=== PATIENT | male | born 1955 | race Caucasian/White ===

== ENCOUNTER 2016-09-13 09:26 | Inpatient (IN) | payer BC ==
[~2016-09-13] VITALS: Ht 172.7 cm; Wt 95.6 kg
[2016-09-13 10:16] LABS: BASO # 0.1 K/mm3 (0.0-0.2); BASO % 0.9 % (0.0-1.0); EOS # 0.1 K/mm3 (0.0-0.50); EOS % 1.2 % (0.0-3.0); LARGE UNSTAINED CELL # 0.1 K/mm3 (0.0-0.4); LARGE UNSTAINED CELL % 1.3 % (0.0-4.0); LYMPH # 1.7 K/mm3 (1.5-4.5); LYMPH % 15.6 % (24.0-44.0); MEAN CORPUSCULAR HEMOGLOBIN 33.1 pg (27.0-33.0); MEAN CORPUSCULAR VOLUME 100.2 fl (80.0-96.0); MONO # 0.5 K/mm3 (0.0-0.8); NEUTROPHILS # 7.7 K/mm3 (1.8-7.7); PLATELET COUNT, AUTOMATED 208 k/mm3 (150-450); RED CELL DISTRIBUTION WIDTH 14.2 % (11.5-14.5); WHITE BLOOD COUNT 10.1 K/mm3 (4.0-10.0)
[2016-09-13 10:22] LABS: INR 0.86
--- NOTE | 2016-09-13 10:26 | REP ---
Brain CT without contrast: History: Left arm weakness. CVA greater than 4.5 hours. No comparison study. Findings: Digital lateral reshipping clerk radiograph is unremarkable. Bone window settings demonstrate an intact bony calvarium. Fairly prominent vascular calcification is noted bilaterally in the distal carotid and vertebral arteries. The visualized paranasal sinuses are clear. No intraorbital abnormality is seen. There is mild diffuse cerebral atrophy. There is no evidence of intracranial hemorrhage. No mass, infarct, extra-axial fluid collection or midline shift is seen. Impression: Vascular calcification and diffuse atrophy. No acute intracranial lesion. Signed by Goyo Erazo MD 09/13/2016 12:38 P
--- NOTE | 2016-09-13 10:27 | REP ---
AP semi-erect chest x-ray: Single view. History: Weakness. Findings: EKG monitoring electrodes overlie the chest. The lungs are well inflated and clear. The pleural angles are sharp. Heart is not enlarged. Impression: No active disease. Signed by Goyo Erazo MD 09/13/2016 12:38 P
[2016-09-13 10:38] LABS: ANION GAP 10 MEQ/L (8-16); BLOOD UREA NITROGEN 23 MG/DL (7-18); CALCIUM LEVEL 8.5 MG/DL (8.5-10.1); CARBON DIOXIDE LEVEL 26 MEQ/L (21-32); CHLORIDE LEVEL 107 MEQ/L (98-107); CREATININE FOR GFR 1.14 MG/DL (0.70-1.30); GLOMERULAR FILTRATION RATE > 60.0 (>56); GLUCOSE, FASTING 88 MG/DL (70-105); POTASSIUM SERUM 4.2 MEQ/L (3.5-5.1); SODIUM LEVEL 143 MEQ/L (136-145)
[2016-09-13 10:44] LABS: ALBUMIN 3.9 GM/DL (3.2-5.2); ALBUMIN/GLOBULIN RATIO 1.22 (1.00-1.93); ALKALINE PHOSPHATASE 106 U/L (45-117); ALT/SGPT 69 U/L (12-78); AST/SGOT 136 U/L (15-37); BILIRUBIN,DIRECT < 0.1 MG/DL (0.0-0.2); BILIRUBIN,TOTAL 0.3 MG/DL (0.2-1.0); TOTAL PROTEIN 7.1 GM/DL (6.4-8.2)
[2016-09-13 11:07] LABS: AMPHETAMINES LEVEL URINE NEGATIVE (NEGATIVE); BENZODIAZEPINES URINE NEGATIVE (NEGATIVE); COCAINE METABOLITE URINE NEGATIVE (NEGATIVE); CONTROL LINE INT CTR LINE PRESENT; METHADONE URINE NEGATIVE (NEGATIVE); OPIATES URINE POSITIVE (NEGATIVE); TRICYCLIC ANTIDEPRESS URINE POSITIVE (NEGATIVE)
[2016-09-13] MEDS ORDERED: SIMV20TA2 PO (11:41)
[2016-09-13] MEDS ORDERED: LISI-538 PO (11:41)
[2016-09-13] MEDS ORDERED: PRED20TA PO (11:41)
[2016-09-13] MEDS ORDERED: SERT-138 PO (11:41)
[2016-09-13] MEDS ORDERED: CYCL10TA PO (11:41)
[2016-09-13] MEDS ORDERED: BUPR300T34 PO (11:41)
[2016-09-13] MEDS ORDERED: ACETAMINOPHEN TAB 650MG DOSE (2X325MG) PO PRN (12:15)
[2016-09-13 13:13] LABS: CHOLESTEROL LEVEL 201 MG/DL (<200); TRIGLYCERIDES LEVEL 142 MG/DL (<150)
--- NOTE | 2016-09-13 15:00 | REP ---
Left shoulder: Single view. History: Injury and a fall question fracture. Findings: The glenohumeral and acromioclavicular joints are normally aligned. There is irregular ossification at the coracoclavicular ligament consistent with a previous AC separation injury. No acute fracture is seen. There is mild osteoarthritic spurring at the AC joint. Impression: No acute fracture seen on this single AP view. Ossification along the course of the coracoclavicular ligament consistent with old injury. Signed by Goyo Erazo MD 09/13/2016 03:39 P
[2016-09-13] MEDS ORDERED: PERCOCET 5MG/325MG TAB As Ordered ONE ×2 (15:24→15:32)
--- NOTE | 2016-09-13 15:25 | REP ---
Duplex carotid sonography: History: Evaluate for stenosis. CVA. Findings: Antegrade flow is observed in both vertebral arteries. Right carotid: The right common carotid artery shows mild diffuse intimal thickening. There is mild mixed plaquing in the proximal ICA on two-dimensional scanning. Color flow and spectral Doppler interrogation are unremarkable on the right. Velocity chart right carotid: PSV EDV Right CCA 90.0 cm/s Right ICA 104.0 39.0 Right ECA 153.0 Right ICA/CCA ratio normal 1.2. Impression: 16 - 49% category narrowing in the right ICA by Doppler velocity criteria. Left carotid: There is mild mixed plaquing in the distal CCA on the left side. Mixed plaquing is seen in the bulb and proximal ICA on two-dimensional scanning. Doppler interrogation on the left shows mildly elevated systolic velocities in the left ICA. Left carotid velocity chart: PSV EDV Left CCA 133.0 cm/s Left ICA 153.0 53.0 Left ECA 129.0 Left ICA/CCA ratio 1.2. Impression: 50-79% category narrowing in the left ICA by Doppler velocity criteria. Signed by Goyo Erazo MD 09/13/2016 03:39 P
--- NOTE | 2016-09-13 17:00 | HPEPDOC ---
General Date of Admission 09/13/16 - 1130AM Chief Complaint The patient is a 61-year-old male Presented to the ER with complaints of left arm weakness and feeling stupid History of Present Illness Patient is a 61 year old male with a PMHx of HTN, DLP, Chronic alcohol dependence, Depression and Sciatica who presented to the ER, brought in by his friend because of left arm weakness. Patient noted that yesterday (09/12) afternoon, he was getting out of his pickup truck and fell on his left shoulder. He noted that he fell on his left side. He denied any loss of consciousness or head trauma. He didnt have any significant problems at that time. He went back to his hotel after that. He did report that he was experiencing some weakness since that point. When he was at the hotel he had a pint of bourbon. His friend found him the next morning with arm weakness and brought him to the ER. Patient denies any previous stroke or heart attack. He denies any chest pain, palpitations, shortness of breath, nausea / vomiting, abdominal pain, constipation / diarrhea, or urinary symptoms. He denies any incontinence of urine or stool. Home Medications Scheduled Bupropion HCl (Bupropion HCl Xl) 300 Mg Tab 300 MG PO DAILY (Reported) Cyclobenzaprine HCl (Cyclobenzaprine HCl) 10 Mg Tab 10 MG PO QHS (Reported) Lisinopril (Lisinopril) 20 Mg Tab 20 MG PO QHS (Reported) Prednisone (Prednisone) 20 Mg Tab 20 MG PO BID (Reported) FOR 5 DAYS FILLED / Sertraline HCl (Sertraline HCl) 100 Mg Tab 200 MG PO QHS (Reported) Simvastatin (Simvastatin) 20 Mg Tab 20 MG PO QHS (Reported) Allergies Coded Allergies: No Known Drug Allergy (Unverified Allergy, Unknown, 09/13/16) Past Medical History Medical History HTN, DLP, Chronic alcohol dependence, Depression and Sciatica Surgical History s/p Cholecystectomy 2016 b/l knee surgery repair Right inguinal hernia repair 1973 Family History Family History Non contributory Social History Social History - Denies the use of illicit drugs; Smoker of 40 years at 2 ppd; Alcohol user - drinks up to 1 pint of hard liquor daily - Denies recent travel or sick contacts - Lives with in [place] is here in [place] for work - Occupation; Works for [employer] Review of Symptoms Other systems Constitutional: Denies weight loss, change in appetite, Reports recent trauma from fall Eyes: No visual changes or eye pain Ears, Nose, Throat: Denies nose bleeds, or difficulty swallowing Cardiovascular: Denies chest pain, sweating, or orthopnea Respiratory: Denies cough, wheezing, or shortness of breath GI: Kp nausea, vomiting, abdominal pain, diarrhea or constipation : Denies pain with urination or frequency Musculoskeletal: Denies joint pain or swelling Neuro / Psych: reports left arm weakness and left leg weakness, no sensory deficit noted Skin: No skin rashes noted All other review of systems negative; otherwise stated in history of present illness Vital Signs - Vitals: BP 147/83, HR 74, RR 16, Sat 95%RA, Temp 96.9F - General: Lying in bed, No acute distress, Speaking in full sentences, AAOx3 - HEENT: NC, AT, PERRLA, EOMI - CVS: RRR, +S1S2, - Murmurs / rubs / gallops - Lungs: Fair air entry bilaterally, Clear to auscultation, No wheezing / rales / rhonchi - Abdomen: Soft, Non-distended, Non-tender, + Bowel sounds x 4 - Extremities: + PPx4, No lower extremity edema, No calf tenderness - Neuro: 3/5 muscle strength at left upper / lower extremity and 5/5 on right upper / lower extremity, no sensory deficit, CN 2-12 grossly intact - Skin: No visible rashes Laboratory Data Labs 24H Laboratory Tests 2 09/13/16 10:08: Acetaminophen Level < 2.0L, Activated Partial Thromboplast Time 26.1L, Aspartate Amino Transf (AST/SGOT) 136H, Alanine Aminotransferase (ALT/SGPT) 69, Alkaline Phosphatase 106, Total Bilirubin 0.3, Direct Bilirubin < 0.1, Albumin 3.9, Albumin/Globulin Ratio 1.22, Anion Gap 10, White Blood Count 10.1H, Red Blood Count 4.67, Hemoglobin 15.4, Hematocrit 46.7, Mean Corpuscular Volume 100.2H, Mean Corpuscular Hemoglobin 33.1H, Mean Corpuscular Hemoglobin Concent 33.0, Red Cell Distribution Width 14.2, Platelet Count 208, Neutrophils (%) ( Auto) 76.0H, Lymphocytes (%) (Auto) 15.6L, Monocytes (%) (Auto) 5.0, Eosinophils (%) (Auto) 1.2, Basophils (%) (Auto) 0.9, Neutrophils # (Auto) 7.7, Lymphocytes # (Auto) 1.7, Monocytes # (Auto) 0.5, Eosinophils # (Auto) 0.1, Basophils # (Auto) 0.1, Blood Urea Nitrogen 23H, Creatinine 1.14, Sodium Level 143, Potassium Level 4.2, Chloride Level 107, Carbon Dioxide Level 26, Calcium Level 8.5, Total Creatine Kinase 219, Cholesterol Level 201H, Cholesterol/HDL Ratio 2.093, Creatine Kinase MB 1.7, Creatine Kinase MB Relative Index 0.77, Estimated Mean Plasma Glucose 100, Ethyl Alcohol Level 0.286H, Glomerular Filtration Rate > 60.0, HDL Cholesterol 96, Hemoglobin A1c 5.1, LDL Cholesterol 76.6, Large Unclassified Cells # 0.1, Large Unclassified Cells % 1.3, Non-HDL Cholesterol (LDL + VLDL) 105, Prothromb Time International Ratio 0.86, Prothrombin Time 11.8L, Salicylates Level 4.8L, Thyroid Stimulating Hormone (TSH ) 3.990H, Total Protein 7.1, Triglycerides Level 142, Troponin I < 0.02 09/13/16 10:49: Urine Amphetamine Level NEGATIVE, Urine Benzodiazepines Screen NEGATIVE, Urine Cannabinoids NEGATIVE, Urine Cocaine Metabolite NEGATIVE, Urine Opiates Screen POSITIVEH, Urine Barbiturates, Qualitative NEGATIVE, Urine Methadone Screen NEGATIVE, Urine Tricyclic Antidepressants POSITIVEH CBC/BMP Laboratory Tests 09/13/16 10:08 Calcium Level 8.5, Total Creatine Kinase 219, Red Blood Count 4.67, Mean Corpuscular Volume 100.2 H, Mean Corpuscular Hemoglobin 33.1 H, Mean Corpuscular Hemoglobin Concent 33.0, Red Cell Distribution Width 14.2, Neutrophils (%) (Auto) 76.0 H, Lymphocytes (%) (Auto) 15.6 L, Monocytes (%) ( Auto) 5.0, Eosinophils (%) (Auto) 1.2, Basophils (%) (Auto) 0.9, Neutrophils # ( Auto) 7.7, Lymphocytes # (Auto) 1.7, Monocytes # (Auto) 0.5, Eosinophils # (Auto ) 0.1, Basophils # (Auto) 0.1 Plan / VTE VTE Prophylaxis Ordered?: Yes Plan Plan Left arm and leg weakness possibly 2/2 acute cerebrovascular accident, possibly radiculopathy 2/2 fall - Presented with 1 day history of left arm and left leg weakness after a fall - Physical with noted focal motor weakness, CN 2-12 grossly intact - CT negative for hemorrhagic stroke - Will get MRI / MRA of brain, will get MRA of cervical spine - Will get 2D-ECHO, Carotid US, Lipid profile - Will start aspirin and continue with home medications - Will continue with neuro checks - Case discussed with Neurology; at this point we will consult them when the results of the imaging become available Chronic alcohol dependence - long standing history of alcohol dependence - was found to have an elevated alcohol level in the ER - will keep on alcohol withdrawal precautions - will start Librium protocol - will start Folate, Thiamine and multivitamins Shoulder pain 2/2 mechanical fall - will get XR to evaluate for fracture - will start pain control HTN - BP well controlled at this time - will continue with lisinopril with holding parameters DLP - will continue with simvastatin Depression - will continue with sertraline Sciatica - reports that he has been having back pain early this week - was seen at urgent care center and received a steroid injection for the pain - was also provided with a prescription for prednisone and Flexeril - if MRI brain is negative - will get MRI of lumbar / sacral vertebra - will continue with pain control Gastrointestinal prophylaxis - Will start protonix DVT prophylaxis - Will start heparin THU RESTREPO MD Sep 13, 2016 17:00
[2016-09-13] MEDS ORDERED: NICOTINE 21MG/24HR 1 EA TRANSDERMAL As Ordered ONE (18:07)
--- NOTE | 2016-09-13 18:30 | EDDOCDS ---
Physician Documentation [facility] Name: Renny Toure Age: 61 yrs Sex: Male : 1955 Arrival Date: 09/13/2016 Time: 09:26 Bed D1 Private MD: NO PRIMARY PHYSICIAN, . Disposition: 09/13 11:52 Critical Care:. ml Disposition: 09/13/16 11:20 Hospitalization ordered by Claudia Egan for Inpatient Admission. Preliminary diagnosis are Cerebral infarction - with left sided weakness, Alcohol abuse with intoxication. - Bed requested for PCU. - Status is Inpatient Admission. jo3 - Condition is Stable. - Problem is new. - Symptoms are unchanged. Historical: - Allergies: no known allergies; - Home Meds: 1. simvastatin 40 mg Oral tab 1 tab once daily (Last dose: Unknown) 2. Sertraline Unknown daily (Last dose: Unknown) 3. lisinopril Unknown Oral 1 tab once daily (Last dose: Unknown) 4. buspirone 5 mg oral tab Unknown 2 times per day (Last dose: Unknown) 5. Flexeril 10 mg Oral tab 1 tab 3 times per day (Last dose: 09/13/2016 07:00) - PMHx: Hypertension; Hypercholesterolemia; Depression; Anxiety; DDD; - PSHx: Cholecystectomy; Hernia repair; bilateral knee scope; - Social history: Smoking status: Patient uses tobacco products, heavy tobacco smoker. Patient uses alcohol on a daily basis. No barriers to communication noted, Speaks appropriately for age. - Family history: Not pertinent. - : The pt / caregiver states he / she is not on anticoagulants. Home medication list is obtained from. - Exposure Risk Screening:: None identified. Vital Signs: 09:43 Pulse 98; Resp 16; Temp 96.9(T); Pulse Ox 99% ; Weight 97.52 kg / 214.99 lbs; Height 5 elp ft. 8 in. (172.72 cm); Pain 8/10; 09:45 BP 111 / 74 (auto/); jo3 09:46 BP 111 / 74; dem1 09:46 Pulse 70 MON; Pulse Ox 91% ; jo3 10:15 BP 105 / 74 (auto/); jo3 10:15 Pulse 68 MON; Pulse Ox 91% ; jo3 10:45 BP 147 / 83 (auto/); jo3 10:45 Pulse 84 MON; Pulse Ox 83% ; jo3 10:55 Weight 94.35 kg / 208.01 lbs (M); ct3 11:01 Pulse 74 MON; Pulse Ox 95% ; jo3 11:15 BP 117 / 70 (auto/); jo3 11:15 Pulse 74 MON; jo3 12:07 BP 119 / 73 (auto/); jo3 12:07 Pulse 82 MON; jo3 12:15 BP 120 / 74 (auto/); jo3 12:15 Pulse 76 MON; jo3 12:30 BP 112 / 94 (auto/); jo3 12:30 Pulse 78 MON; jo3 12:45 BP 128 / 77 (auto/); jo3 12:45 Pulse 76 MON; jo3 13:00 BP 125 / 73 (auto/); jo3 13:00 Pulse 76 MON; jo3 13:15 BP 130 / 87 (auto/); jo3 13:15 Pulse 90 MON; jo3 13:30 BP 128 / 70 (auto/); jo3 13:30 Pulse 80 MON; jo3 13:45 BP 112 / 63 (auto/); jo3 13:45 Pulse 82 MON; jo3 14:00 BP 124 / 68 (auto/); jo3 14:00 Pulse 82 MON; jo3 14:15 BP 126 / 76 (auto/); jo3 14:15 Pulse 84 MON; jo3 16:34 BP 135 / 94 (auto/); jo3 16:34 Pulse 90 MON; Resp 18; Temp 98.9(O); Pulse Ox 96% on R/A; jo3 18:25 BP 135 / 83; Pulse 82 MON; Resp 18; Temp 98.1; Pulse Ox 96% on R/A; jo3 10:55 Body Mass Index 31.63 (94.35 kg, 172.72 cm) ct3 MDM: 09:44 RN interventions must not delay CT ordered. ml 09:44 Cna Hha/Pulse Ox/q 15 min VS ordered. ml 09:44 Accucheck ordered. ml 09:44 IV Saline Lock ordered. ml 09:44 Neuro VS q 15 Minutes ordered. ml 09:44 Patient must be on CC stretcher and weighed via bed scale ordered. ml 09:44 Rhythm Strip to chart ordered. ml 09:44 Stroke assessment pack to bedside ordered. ml 09:45 Basic Metabolic Profile Ordered. EDMS 09:45 CBC with Diff Ordered. EDMS 09:45 Partial Thromboplastin Time Ordered. EDMS 09:45 Prothrombin Time Profile\E\INR Ordered. EDMS 09:45 Type & Screen Ordered. EDMS 09:45 CIP Ordered. EDMS 09:45 Troponin Ordered. EDMS 09:45 CT Head Without Contrast Ordered. EDMS 09:45 ECG WITH READING ER PHYS+CARDIAG ordered. EDMS 09:45 Consult PFS/PSA/Gas Pumping Station Supervisor ordered. ml 09:45 Confirm accurate psychiatric medication list and times of last dosage ordered. ml 09:46 Chest, 1 View Ordered. EDMS 09:46 Acetaminophen Level Ordered. EDMS 09:46 Drug Eval Toxicology ED Only Ordered. EDMS 09:46 Ethyl Alcohol (ethanol) Ordered. EDMS 09:46 Liver Profile Ordered. EDMS 09:46 Salicylate Level Ordered. EDMS 09:46 Thyroid Stimulating Hormone Ordered. EDMS 10:21 Financial registration complete. lg 11:07 Basic Metabolic Profile Reviewed. ml 11:07 CBC with Diff Reviewed. ml 11:07 Partial Thromboplastin Time Reviewed. ml 11:07 Prothrombin Time Profile\E\INR Reviewed. ml 11:07 Acetaminophen Level Reviewed. ml 11:07 Ethyl Alcohol (ethanol) Reviewed. ml 11:07 Liver Profile Reviewed. ml 11:07 Salicylate Level Reviewed. ml 11:07 Thyroid Stimulating Hormone Reviewed. ml 11:07 Type & Screen Reviewed. ml 11:07 CIP Reviewed. ml 11:07 Troponin Reviewed. ml 11:07 CT Head Without Contrast Reviewed. ml 11:07 Chest, 1 View Reviewed. ml 11:09 [facility] [place] was scanned into [employer] and attached to record. lg 11:12 Drug Eval Toxicology ED Only Reviewed. ml 11:14 BED REQUEST+ADM ordered. EDMS 12:07 MRA BRAIN W/O CONTRAST Ordered. EDMS 12:07 MRI Brain without Contrast Ordered. EDMS 12:07 Shoulder 1 view Ordered. EDMS 12:12 PHYSICAL THERAPY EVAL & TREAT ordered. EDMS 12:12 Duplex,carotid (complete) Ordered. EDMS 12:12 Admission / Observation Status ordered. EDMS 12:13 ECHOCARD,DOPPLER/COLOR FLOW ordered. EDMS 12:13 2 GRAM SODIUM DIET ordered. EDMS 12:13 HEMOGLOBIN A1C Ordered. EDMS 12:27 MRI Spine,Cervical without con Ordered. EDMS 13:44 T-Sheet-- Draft Copy was scanned into [employer] and attached to record. [facility] 15:36 oxyCODONE-acetaminophen 5 mg-325 mg 2 tabs PO once ordered. jo3 17:29 Librium 50 mg PO once ordered. jo3 17:29 Multivitamins W-Minerals 1 tabs PO once ordered. jo3 17:29 Pantoprazole 40 mg PO once ordered. jo3 17:29 folic acid 1 mg PO once ordered. jo3 17:29 Thiamine 100 mg PO once ordered. jo3 18:06 Nicotine Patch 21 mg/24 hr 1 applic Transdermal once ordered. ml Administered Medications: 15:36 Drug: oxyCODONE-acetaminophen 2 tabs [oxycodone-acetaminophen 5 mg-325 mg tablet (2 jo3 tabs)] Route: PO; 17:25 Drug: Librium 50 mg Route: PO; jo3 17:25 Drug: Multivitamins W-Minerals 1 tabs Route: PO; jo3 17:25 Drug: Pantoprazole 40 mg [pantoprazole 40 mg tablet,delayed release (1 tabs)] Route: PO;jo3 17:25 Drug: folic acid 1 mg [folic acid 1 mg tablet (1 tabs)] Route: PO; jo3 17:25 Drug: Thiamine 100 mg [thiamine HCl (vitamin B1) 100 mg tablet (1 tabs)] Route: PO; jo3 18:10 Drug: Nicotine 1 applic [nicotine 21 mg/24 hr daily transdermal patch (1 patches)] jo3 Route: Transdermal; Site: left upper arm; Critical Care Time: 11:52 Critical care time: Bedside Care: 90 minutes, Consultation: 10 minutes, Family ml Intervention: 10 minutes. Total time: 110 minutes Signatures: Dispatcher [employer] [facility] Ba Yee MD MD ml Ganter, LoriLee, Marlon Mason lg Mariana Johns RN RN jo3 Elliott Mercer RN RN ml6 Molly Bermudez RN RN donato2 Gabby Mendez [facility] The chart was reviewed and I authenticate all verbal orders and agree with the evaluation and treatment provided.Corrections: (The following items were deleted from the chart) 12:58 12:14 CARDIAC RISK PROFILE ordered. EDHI EDMS Attachments: 11:09 [facility] Payment Agreement lg 13:44 T-Sheet-- Draft Copy seh MTDD
--- NOTE | 2016-09-13 18:31 | EDDOCDS ---
Nurse's Notes [facility] Name: Renny Toure Age: 61 yrs Sex: Male : 1955 Arrival Date: 09/13/2016 Time: 09:26 Bed D1 Private MD: NO PRIMARY PHYSICIAN, . Diagnosis: Cerebral infarction-with left sided weakness;Alcohol abuse with intoxication Presentation: 09/13 09:42 Presenting complaint: Patient states: states left arm weakness since lastnight, patient ml6 states that he has been drinking all night. The last date and time the patient was known to be well was was at 20:00 on September 12, 2015. No acute neurological deficit is noted. Pre-hospital glucose is not applicable to this patient. Adult Sepsis Screening: The patient does not have new or worsening altered mentation. Patient's respiratory rate is less than 22. Systolic blood pressure is greater than 100. Patient has a qSOFA score of 0- Negative Sepsis Screen. Suicide/Homicide risk assessment- the patient denies having any suicidal and/or homicidal ideations and does not present with any other emotional, behavioral or mental health complaints. Status: Patient is not a human service worker or dependent. Transition of care: patient was not received from another setting of care. 09:42 Acuity: VICENTE Level 3 ml6 09:42 Method Of Arrival: Walkin/Carried/Asstd 6 09:42 Red Flag criteria, patient assessed and taken directly to a bed. 6 Triage Assessment: 09:42 The onset of the patients symptoms was more than three hours ago. General: Appears in ml6 no apparent distress, Behavior is drowsy, Smells of alcohol. Pain: Denies pain. HIV screening NA for this visit Offered previously. Neurological: Level of Consciousness is lethargic, Oriented to person, place, Aviation Safety Technician are weak on left Moves all extremities. Weakness in bilateral hand's) arm(s) leg(s) foot/feet Gait is unsteady, Speech is slurred, Facial symmetry appears normal, Reports no additional symptoms. Cardiovascular: No deficits noted. Respiratory: No deficits noted. Historical: - Allergies: no known allergies; - Home Meds: 1. simvastatin 40 mg Oral tab 1 tab once daily (Last dose: Unknown) 2. Sertraline Unknown daily (Last dose: Unknown) 3. lisinopril Unknown Oral 1 tab once daily (Last dose: Unknown) 4. buspirone 5 mg oral tab Unknown 2 times per day (Last dose: Unknown) 5. Flexeril 10 mg Oral tab 1 tab 3 times per day (Last dose: 09/13/2016 07:00) - PMHx: Hypertension; Hypercholesterolemia; Depression; Anxiety; DDD; - PSHx: Cholecystectomy; Hernia repair; bilateral knee scope; - Social history: Smoking status: Patient uses tobacco products, heavy tobacco smoker. Patient uses alcohol on a daily basis. No barriers to communication noted, Speaks appropriately for age. - Family history: Not pertinent. - : The pt / caregiver states he / she is not on anticoagulants. Home medication list is obtained from. - Exposure Risk Screening:: None identified. Screenin:13 Screening information is obtained from the patient. Fall risk: No risks identified. jo3 Assistance ADL's: requires no assistance with activities of daily living. Abuse/DV Screen: The patient / caregiver reports he/she is: not in a situation that causes fear, pain or injury. Nutritional screening: No deficits noted. Advance Directives: There is no active DNR order. home support is adequate. Assessment: 10:13 General: Appears in no apparent distress, comfortable, Behavior is cooperative, Smells jo3 of alcohol. Neurological: Level of Consciousness is awake, alert, Oriented to person, place, time, Aviation Safety Technician are equal bilaterally Moves all extremities. Speech Pt reports feeling "stupid". States he doesn't feel like he's thinking right . Cardiovascular: Rhythm is sinus rhythm No ectopy. Chest pain is denied. Respiratory: Airway is patent Respiratory effort is even, unlabored. Derm: Skin is pink, warm & dry. Musculoskeletal: Reports Left arm pain and right arm weakness and pain. 10:30 Reassessment: Patient appears in no apparent distress at this time. No changes noted in jo3 neuro assessment at this time . 10:45 Reassessment: Patient appears in no apparent distress at this time. No changes in neuro jo3 assessment . 11:00 General: Appears in no apparent distress, comfortable, Behavior is appropriate for age, jo3 cooperative. Neurological: Level of Consciousness is awake, alert, Oriented to person, place, time, Aviation Safety Technician are weak on left Definitive weakness noted in left predatory animal hunter, not perceived in initial assessment by this video game script writer . Moves all extremities. Respiratory: Airway is patent Respiratory effort is even, unlabored. 11:51 General: Appears in no apparent distress, comfortable, Behavior is appropriate for age, jo3 cooperative. Neurological: Level of Consciousness is awake, alert, Oriented to person, place, time, Aviation Safety Technician are weak on left Moves all extremities. Speech Pt continues to report feeling "foggy". EENT: No deficits noted. Cardiovascular: Rhythm is sinus rhythm No ectopy. Chest pain is denied. Respiratory: Airway is patent Respiratory effort is even, unlabored. Derm: Skin is pink, warm & dry. 12:40 Reassessment: Patient appears in no apparent distress at this time. No significant jo3 changes noted at this time. Awaiting available bed for admission. Aware of plan of care . 13:40 Reassessment: Patient appears in no apparent distress at this time. General: Appears in jo3 no apparent distress, comfortable, Behavior is appropriate for age, cooperative, Smells of. Neurological: No deficits noted. Respiratory: Airway is patent Respiratory effort is even, unlabored. 14:45 General: Appears in no apparent distress, uncomfortable, Behavior is appropriate for jo3 age, cooperative, pleasant. Neurological: No deficits noted. Level of Consciousness is awake, alert, Oriented to person, place, time. Respiratory: Airway is patent Respiratory effort is even, unlabored. Derm: Skin is pink, warm & dry. 15:45 General: Appears in no apparent distress, comfortable, Behavior is appropriate for age, jo3 cooperative. Neurological: No changes noted . Cardiovascular: No deficits noted. Derm: Skin is pink, warm & dry. 17:20 Reassessment: Pt reprted shakiness and feeling like he was in ETOH withdrawal. BP and jo3 pulse noted to be increasing by this video game script writer. Pt admits top heavy drinking this week with a positive history of ETOH abuse. Pharmacy called and Librium initiated early to accommodate. Continuing to monitor . Vital Signs: 09:43 Pulse 98; Resp 16; Temp 96.9(T); Pulse Ox 99% ; Weight 97.52 kg; Height 5 ft. 8 in. elp (172.72 cm); Pain /; 09:45 BP 111 / 74 (auto/); jo3 09:46 BP 111 / 74; dem1 09:46 Pulse 70 MON; Pulse Ox 91% ; jo3 10:15 BP 105 / 74 (auto/); jo3 10:15 Pulse 68 MON; Pulse Ox 91% ; jo3 10:45 BP 147 / 83 (auto/); jo3 10:45 Pulse 84 MON; Pulse Ox 83% ; jo3 10:55 Weight 94.35 kg (M); ct3 11:01 Pulse 74 MON; Pulse Ox 95% ; jo3 11:15 BP 117 / 70 (auto/); jo3 11:15 Pulse 74 MON; jo3 12:07 BP 119 / 73 (auto/); jo3 12:07 Pulse 82 MON; jo3 12:15 BP 120 / 74 (auto/); jo3 12:15 Pulse 76 MON; jo3 12:30 BP 112 / 94 (auto/); jo3 12:30 Pulse 78 MON; jo3 12:45 BP 128 / 77 (auto/); jo3 12:45 Pulse 76 MON; jo3 13:00 BP 125 / 73 (auto/); jo3 13:00 Pulse 76 MON; jo3 13:15 BP 130 / 87 (auto/); jo3 13:15 Pulse 90 MON; jo3 13:30 BP 128 / 70 (auto/); jo3 13:30 Pulse 80 MON; jo3 13:45 BP 112 / 63 (auto/); jo3 13:45 Pulse 82 MON; jo3 14:00 BP 124 / 68 (auto/); jo3 14:00 Pulse 82 MON; jo3 14:15 BP 126 / 76 (auto/); jo3 14:15 Pulse 84 MON; jo3 16:34 BP 135 / 94 (auto/); jo3 16:34 Pulse 90 MON; Resp 18; Temp 98.9(O); Pulse Ox 96% on R/A; jo3 18:25 BP 135 / 83; Pulse 82 MON; Resp 18; Temp 98.1; Pulse Ox 96% on R/A; jo3 10:55 Body Mass Index 31.63 (94.35 kg, 172.72 cm) ct3 Vitals: 09:29 Log In Time: September 13, 2016 at 09:27. elp 09:43 RN notified that patient meets Red Flag criteria. elp ED Course: 09:28 Patient visited by Jillian Oakes PCA. elp 09:28 NO PRIMARY PHYSICIAN, . is Private Physician. elp 09:28 Patient moved to Waiting elp 09:31 Nayeli Toney,ERMIAS is Primary Nurse. elp 09:31 Patient moved to 9 elp 09:33 Ba Yee MD is Attending Physician. ml 09:33 Patient visited by Ba Yee MD. ml 09:43 Patient visited by Jillian Oakes PCA. elp 09:44 Triage Initiated ml6 09:[address] dsf 09:46 Pt greeted and oriented to ED. Patient advised of names of staff involved in care, [facility] location of call dejesus, wait times and NPO status. Patient has correct armband on for positive identification. Placed in gown. Bed in low position. Call light in reach. school bus monitor on. Pulse ox on. NIBP on. 09:47 Patient visited by Milagros Parker. dem1 09:56 Patient moved to Radiology je3 10:01 Patient moved to 9 bar 10:03 EKG done. (by ED staff). Reviewed by Ba Yee MD. nb2 10:05 Patient visited by Jesica Duenas. nb2 10:11 Acetaminophen Level Sent. jo3 10:11 Drug Eval Toxicology ED Only Sent. jo3 10:11 Ethyl Alcohol (ethanol) Sent. jo3 10:11 Liver Profile Sent. jo3 10:11 Salicylate Level Sent. jo3 10:11 Thyroid Stimulating Hormone Sent. jo3 10:11 Troponin Sent. jo3 10:11 CIP Sent. jo3 10:11 Basic Metabolic Profile Sent. jo3 10:13 The patient / caregiver is instructed regarding the plan of care and ED course. jo3 10:13 Inserted saline lock: 18 gauge in right antecubital area. Labs drawn. (by ED staff). jo3 Sent per order to lab. 10:40 CT Head Without Contrast Returned. EDMS 10:40 Chest, 1 View Returned. EDMS 10:56 Patient visited by Laura Catherine PCA. ct3 11:06 Patient visited by Mariana Johns RN. jo3 11:08 Patient name changed from Renny\\S\\\\S\\Toure\\S\\ to Renny\\S\\Gary\\S\\Toure. EDMS 11:09 [facility] [place] Agreement was scanned into [employer] and attached to record. lg 11:14 Patient visited by Mariana Johns RN. jo3 11:19 Claudia Egan is Hospitalizing Provider. ml 11:50 Primary Nurse role handed off by Nayeli Toney RN ct3 11:52 Patient visited by Mariana Johns RN. jo3 12:22 Patient visited by Mariana Johns RN. jo3 12:24 Patient moved to Admit Hold kpj 12:38 Patient moved to Ultrasound br3 12:43 Patient moved to Admit Hold kpj 13:05 Patient moved to 9 br3 13:05 CT Head Without Contrast Returned. EDMS 13:05 Chest, 1 View Returned. EDMS 13:30 Patient moved to Admit Hold kpj 13:44 T-Sheet-- Draft Copy was scanned into [employer] and attached to record. seh 14:07 Patient visited by Gabby Schroeder. sew 14:07 Diet: Patient given regular meal. sew 14:48 Patient visited by Sukhjinder Amador,ERMIAS. jf3 15:00 Patient visited by Mariana Johns RN. jo3 15:12 Shoulder 1 view Returned. EDMS 15:46 Duplex,carotid (complete) Returned. EDMS 17:25 Patient visited by Mariana Johns RN. jo3 18:25 Patient moved to D1 ar3 18:25 No procedures done that require assistance. jo3 Administered Medications: 15:36 Drug: oxyCODONE-acetaminophen 2 tabs [oxycodone-acetaminophen 5 mg-325 mg tablet (2 jo3 tabs)] Route: PO; 17:25 Drug: Librium 50 mg Route: PO; jo3 17:25 Drug: Multivitamins W-Minerals 1 tabs Route: PO; jo3 17:25 Drug: Pantoprazole 40 mg [pantoprazole 40 mg tablet,delayed release (1 tabs)] Route: PO;jo3 17:25 Drug: folic acid 1 mg [folic acid 1 mg tablet (1 tabs)] Route: PO; jo3 17:25 Drug: Thiamine 100 mg [thiamine HCl (vitamin B1) 100 mg tablet (1 tabs)] Route: PO; jo3 18:10 Drug: Nicotine 1 applic [nicotine 21 mg/24 hr daily transdermal patch (1 patches)] jo3 Route: Transdermal; Site: left upper arm; Order Results: Lab Order: Basic Metabolic Profile; SPEC'M 09/13/16 10:08 Test: GLUCOSE, FASTING; Value: 88; Range: 70-105; Units: MG/DL; Status: F Test: BLOOD UREA NITROGEN; Value: 23; Range: 7-18; Abnormal: Above high normal; Units: MG/DL; Status: F Test: CREATININE FOR GFR; Value: 1.14; Range: 0.70-1.30; Units: MG/DL; Status: F Test: GLOMERULAR FILTRATION RATE; Value: > 60.0; Range: >56; Status: F Test: SODIUM LEVEL; Value: 143; Range: 136-145; Units: MEQ/L; Status: F Test: POTASSIUM SERUM; Value: 4.2; Range: 3.5-5.1; Units: MEQ/L; Status: F Test: CHLORIDE LEVEL; Value: 107; Range: 98-107; Units: MEQ/L; Status: F Test: CARBON DIOXIDE LEVEL; Value: 26; Range: 21-32; Units: MEQ/L; Status: F Test: ANION GAP; Value: 10; Range: 8-16; Units: MEQ/L; Status: F Test: CALCIUM LEVEL; Value: 8.5; Range: 8.5-10.1; Units: MG/DL; Status: F Test Note: ; Units are mL/min/1.73 m2 Chronic Kidney Disease Staging per NKF: Stage I & II GFR >=60 Normal to Mildly Decreased Stage III GFR 30-59 Moderately Decreased Stage IV GFR 15-29 Severely Decreased Stage V GFR <15 Very Little GFR Left ESRD GFR <15 on [facility] UNDERWRITER Lab Order: CBC with Diff; SPEC'M 09/13/16 10:08 Test: WHITE BLOOD COUNT; Value: 10.1; Range: 4.0-10.0; Abnormal: Above high normal; Units: K/mm3; Status: F Test: RED BLOOD COUNT; Value: 4.67; Range: 4.30-6.10; Units: M/mm3; Status: F Test: HEMOGLOBIN; Value: 15.4; Range: 14.0-18.0; Units: g/dl; Status: F Test: HEMATOCRIT; Value: 46.7; Range: 42.0-52.0; Units: %; Status: F Test: MEAN CORPUSCULAR VOLUME; Value: 100.2; Range: 80.0-96.0; Abnormal: Above high normal; Units: fl; Status: F Test: MEAN CORPUSCULAR HEMOGLOBIN; Value: 33.1; Range: 27.0-33.0; Abnormal: Above high normal; Units: pg; Status: F Test: MEAN CORPUSCULAR HGB CONC; Value: 33.0; Range: 32.0-36.5; Units: g/dl; Status: F Test: RED CELL DISTRIBUTION WIDTH; Value: 14.2; Range: 11.5-14.5; Units: %; Status: F Test: PLATELET COUNT, AUTOMATED; Value: 208; Range: 150-450; Units: k/mm3; Status: F Test: NEUTROPHILS %; Value: 76.0; Range: 36.0-66.0; Abnormal: Above high normal; Units: %; Status: F Test: LYMPH %; Value: 15.6; Range: 24.0-44.0; Abnormal: Below low normal; Units: %; Status: F Test: MONO %; Value: 5.0; Range: 0.0-5.0; Units: %; Status: F Test: EOS %; Value: 1.2; Range: 0.0-3.0; Units: %; Status: F Test: BASO %; Value: 0.9; Range: 0.0-1.0; Units: %; Status: F Test: LARGE UNSTAINED CELL %; Value: 1.3; Range: 0.0-4.0; Units: %; Status: F Test: NEUTROPHILS #; Value: 7.7; Range: 1.8-7.7; Units: K/mm3; Status: F Test: LYMPH #; Value: 1.7; Range: 1.5-4.5; Units: K/mm3; Status: F Test: MONO #; Value: 0.5; Range: 0.0-0.8; Units: K/mm3; Status: F Test: EOS #; Value: 0.1; Range: 0.0-0.50; Units: K/mm3; Status: F Test: BASO #; Value: 0.1; Range: 0.0-0.2; Units: K/mm3; Status: F Test: LARGE UNSTAINED CELL #; Value: 0.1; Range: 0.0-0.4; Units: K/mm3; Status: F Lab Order: Partial Thromboplastin Time; [facility] 10[facility]08 Test: PARTIAL THROMBOPLASTIN TIME; Value: 26.1; Range: 26.6-37.1; Abnormal: Below low normal; Units: SECONDS; Status: F Lab Order: Prothrombin Time Profile\\E\\INR; 09/13/16 10:08 Test: PROTHROMBIN TIME; Value: 11.8; Range: 12.3-14.5; Abnormal: Below low normal; Units: SECONDS; Status: F Test: INR; Value: 0.86; Status: F Test Note: ; THERAPUTIC HUMAN INR VALUES INDICATIONS NORMAL RANGES PROPHYLAXIS/TREATMENT OF: VENOUS THROMBOSIS 2.0-3.0 PULMONARY EMBOLISM 2.0-3.0 PREVENTION OF SYSTEMIC EMBOLISM FROM: TISSUE HEART VALVES 2.0-3.0 ACUTE MYOCARDIAL INFARCTION 2.0-3.0 VALVULAR HEART DISEASE 2.0-3.0 ATRIAL FIBRILLATION 2.0-3.0 MECHANICAL VALVES(HIGH RISK) 2.5-3.5 RECURRENT MYOCARDIAL INFARCTION 2.5-3.5 Lab Order: Type & Screen; 09/13/16 10:08 Test: BLOOD TYPE; Value: A NEG; Status: F Test: AB SCREEN (INDIRECT VICKY)GEL; Value: NEGATIVE; Status: F Lab Order: CIP; 09/13/16 10:08 Test: CPK CREATINE PHOSPHOKINASE; Value: 219; Range: 39-308; Units: U/L; Status: F Test: CK-MB VALUE MASS; Value: 1.7; Range: 0.0-3.6; Units: NG/ML; Status: F Test: MB/CK RELATIVE INDEX; Value: 0.77; Range: < OR =4; Status: F Test Note: ; DIAGNOSIS CRITERIA MMB ng/ml Relative Index (RI) NON-AMI < or = 5 N/A VALENTIN ZONE > 5 < or = 4 AMI > 5 > 4 Lab Order: Troponin; 09/13/16 10:08 Test: TROPONIN I; Value: < 0.02; Range: < 0.10; Units: NG/ML; Status: F Test Note: ; Troponin I Reference Interval for [employer] [place] LOCI: 99th Percentile= 0.00-0.045 ng/ml Risk Stratification: <= 0.10 ng/ml Decreased Risk for Adverse Clinical Events. 0.10-1.50 ng/ml Increased Risk for Adverse Clinical Events. Evaluation of additional criterion and/or repeat testing in 2-6 hours is suggested to rule out myocardial damage. >= 1.50 ng/ml Indicative of Myocardial Injury. Lab Order: Acetaminophen Level; SPEC'M 09/13/16 10:08 Test: ACETAMINOPHEN LEVEL; Value: < 2.0; Range: 10.0-30.0; Abnormal: Below low normal; Units: UG/ML; Status: F Lab Order: Drug Eval Toxicology ED Only; SPEC'M 09/13/16 10:49 Test: AMPHETAMINES LEVEL URINE; Value: NEGATIVE; Range: NEGATIVE; Status: F Test: BARBITURATES URINE; Value: NEGATIVE; Range: NEGATIVE; Status: F Test: BENZODIAZEPINES URINE; Value: NEGATIVE; Range: NEGATIVE; Status: F Test: CANNABINOIDS URINE; Value: NEGATIVE; Range: NEGATIVE; Status: F Test: COCAINE METABOLITE URINE; Value: NEGATIVE; Range: NEGATIVE; Status: F Test: METHADONE URINE; Value: NEGATIVE; Range: NEGATIVE; Status: F Test: OPIATES URINE; Value: POSITIVE; Range: NEGATIVE; Abnormal: Above high normal; Status: F Test: TRICYCLIC ANTIDEPRESS URINE; Value: POSITIVE; Range: NEGATIVE; Abnormal: Above high normal; Status: F Test Note: ; ALL PRESUMPTIVE POSITIVE FINDINGS ARE UNCONFIRMED NORMAL VALUES THRESHOLD IN NG/ML AMPHETAMINES 1000 METHAMPHETAMINES 1000 BARBITURATES 300 BENZODIAZEPINES 300 CANNABINOIDS (THC) 50 COCAINE METABOLITE 300 METHADONE 300 OPIATES 300 PHENCYCLIDINE 25 TRICYCLIC ANTIDEPRESSANTS 1000 RESULTS ARE FOR MEDICAL PURPOSES ONLY. ALL URINE SPECIMENS WILL BE SAVED FOR 3 DAYS. IF CONFIRMATION OF A PRESUMPTIVE POSTIVE SCREEN RESULT IS DESIRED, CALL CHEMISTRY ([phone]) AND REQUEST URINE TO BE SENT TO REFERENCE LAB. FOR A LIST OF CLOSELY RELATED COMPOUNDS PLEASE CALL THE LAB. Lab Order: Ethyl Alcohol (ethanol); SPEC'M 09/13/16 10:08 Test: ETHYL ALCOHOL (ETHANOL); Value: 0.286; Range: 0.000-0.010; Abnormal: Above high normal; Units: %; Status: F Lab Order: Liver Profile; [facility] 09/13/16 10:08 Test: AST/SGOT; Value: 136; Range: 15-37; Abnormal: Above high normal; Units: U/L; Status: F Test: ALT/SGPT; Value: 69; Range: 12-78; Units: U/L; Status: F Test: ALKALINE PHOSPHATASE; Value: 106; Range: 45-117; Units: U/L; Status: F Test: BILIRUBIN,TOTAL; Value: 0.3; Range: 0.2-1.0; Units: MG/DL; Status: F Test: BILIRUBIN,DIRECT; Value: < 0.1; Range: 0.0-0.2; Units: MG/DL; Status: F Test: TOTAL PROTEIN; Value: 7.1; Range: 6.4-8.2; Units: GM/DL; Status: F Test: ALBUMIN; Value: 3.9; Range: 3.2-5.2; Units: GM/DL; Status: F Test: ALBUMIN/GLOBULIN RATIO; Value: 1.22; Range: 1.00-1.93; Status: F Lab Order: Salicylate Level; [facility] 09/13/16 10:08 Test: SALICYLATE LEVEL; Value: 4.8; Range: 5.0-30.0; Abnormal: Below low normal; Units: MG/DL; Status: F Lab Order: Thyroid Stimulating Hormone; [facility] 09/13/16 10:08 Test: THYROID STIMULATING HORMONE; Value: 3.990; Range: 0.358-3.740; Abnormal: Above high normal; Units: uIU/ML; Status: F Lab Order: HEMOGLOBIN A1C; [facility] 09/13/16 10:08 Test: HEMOGLOBIN A1c; Value: 5.1; Range: 4.5-6.2; Units: %; Status: F Test: ESTIMATED AVERAGE GLUCOSE; Value: 100; Range: 60-110; Units: MG/DL; Status: F Lab Order: CARDIAC RISK PROFILE; [facility] 09/13/16 10:08 Test: TRIGLYCERIDES LEVEL; Value: 142; Range: <150; Units: MG/DL; Status: F Test: CHOLESTEROL LEVEL; Value: 201; Range: <200; Abnormal: Above high normal; Units: MG/DL; Status: F Test: HDL CHOLESTEROL; Value: 96; Range: >40; Units: MG/DL; Status: F Test: LDL CHOLESTEROL; Value: 76.6; Range: <100; Units: MG/DL; Status: F Test: NON-HDL-C; Value: 105; Units: MG/DL; Status: F Test: CHOLESTEROL RISK RATIO; Value: 2.093; Range: <5; Status: F Radiology Order: CT Head Without Contrast Test: CT Head Without Contrast REASON FOR EXAMINATION: left arm wkness;CVA >4.5hrs; Brain CT without contrast:; ; History: Left arm weakness. CVA greater than 4.5 hours. No comparison study.; ; Findings: Digital lateral veterinary livestock inspector radiograph is unremarkable. Bone window; settings demonstrate an intact bony calvarium. Fairly prominent vascular; calcification is noted bilaterally in the distal carotid and vertebral arteries.; The visualized paranasal sinuses are clear. No intraorbital abnormality is; seen.; ; There is mild diffuse cerebral atrophy. There is no evidence of intracranial; hemorrhage. No mass, infarct, extra-axial fluid collection or midline shift is; seen.; ; Impression:; ; Vascular calcification and diffuse atrophy. No acute intracranial lesion.; ; ; Signed by; Goyo Erazo MD 09/13/2016 12:38 P; Radiology Order: Chest, 1 View Test: Chest, 1 View REASON FOR EXAMINATION: wekaness; AP semi-erect chest x-ray: Single view.; ; History: Weakness.; ; Findings: EKG monitoring electrodes overlie the chest. The lungs are well; inflated and clear. The pleural angles are sharp. Heart is not enlarged.; ; Impression:; ; No active disease.; ; ; Signed by; Goyo Erazo MD 09/13/2016 12:38 P; Radiology Order: Shoulder 1 view Test: Shoulder 1 view REASON FOR EXAMINATION: Shoulder pain s/p fall - r/o fracture; Left shoulder: Single view.; ; History: Injury and a fall question fracture.; ; Findings: The glenohumeral and acromioclavicular joints are normally aligned.; There is irregular ossification at the coracoclavicular ligament consistent with; a previous AC separation injury. No acute fracture is seen. There is mild; osteoarthritic spurring at the AC joint.; ; Impression:; ; No acute fracture seen on this single AP view. Ossification along the course of; the coracoclavicular ligament consistent with old injury.; ; ; Signed by; Goyo Erazo MD 09/13/2016 03:39 P; Radiology Order: Duplex,carotid (complete) Test: Duplex,carotid (complete) REASON FOR EXAMINATION: Evaluate for stenosis - RE: CVA; Duplex carotid sonography:; ; History: Evaluate for stenosis. CVA.; ; Findings: Antegrade flow is observed in both vertebral arteries.; ; Right carotid: The right common carotid artery shows mild diffuse intimal; thickening. There is mild mixed plaquing in the proximal ICA on two-dimensional; scanning. Color flow and spectral Doppler interrogation are unremarkable on the; right.; ; Velocity chart right carotid:; ; PSV EDV; ; Right CCA 90.0 cm/s; ; Right ICA 104.0 39.0; ; Right ECA 153.0; ; Right ICA/CCA ratio normal 1.2.; ; Impression:; ; 16 - 49% category narrowing in the right ICA by Doppler velocity criteria.; ; Left carotid: There is mild mixed plaquing in the distal CCA on the left side.; Mixed plaquing is seen in the bulb and proximal ICA on two-dimensional scanning.; Doppler interrogation on the left shows mildly elevated systolic velocities in; the left ICA.; ; Left carotid velocity chart:; ; PSV EDV; ; Left CCA 133.0 cm/s; ; Left ICA 153.0 53.0; ; Left ECA 129.0; ; Left ICA/CCA ratio 1.2.; ; Impression:; ; 50-79% category narrowing in the left ICA by Doppler velocity criteria.; ; ; Signed by; Goyo Erazo MD 09/13/2016 03:39 P; Outcome: 11:20 Decision to Hospitalize by Provider. ml 18:25 Discharge Assessment: Patient awake, alert and oriented x 3. No cognitive and/or jo3 functional deficits noted. Patient verbalized understanding of disposition instructions. patient administered narcotics - yes. Patient was admitted to the hospital or transferred to another facility. The following High Risk Discharge criteria are identified: Yes, ETOH abuse . Admitted to PCU accompanied by nurse, accompanied by tech, via stretcher, on monitor, with chart. Condition: stable. CT Study completed. Property :Personal belongings accompany Pt. 18:29 Patient left the ED. jo3 Signatures: Dispatcher [employer] EDMS Ba Yee MD MD ml Jobson, Karen, RN RN kpj Christopher, Mo Campbell, Reg Reg lg Mariana JohnsRN RN jo3 , Adriano marcelino3 Elliott Mercer, ERMIAS RN ml6 Aissatou Cunha br3 Eyal Alstona, POST CLOSING SPECIALIST POST CLOSING SPECIALIST ar3 CatherineLaura abdullahi, POST CLOSING SPECIALIST POST CLOSING SPECIALIST ct3 Aracelis Rivera,RN RN magda Parker, Caroleorion dem1 Alexandre, Jillian Darden, POST CLOSING SPECIALIST POST CLOSING SPECIALIST elp Sukhjinder Amador RN RN ani3 Gabby Mendez Nicole nb2 Corrections: (The following items were deleted from the chart) 11:13 11:00 Neurological: Level of Consciousness is awake, alert, Oriented to person, place, jo3 time, Aviation Safety Technician are equal bilaterally Moves all extremities. jo3 14:53 12:45 Reassessment: Patient appears in no apparent distress at this time. No jo3 significant changes noted at this time. Awaiting available bed for admission. Aware of plan of care . jf3 14:53 13:45 Reassessment: Patient appears in no apparent distress at this time. jf3 jo3 14:53 13:45 General: Appears in no apparent distress, comfortable, Behavior is appropriate jo3 for age, cooperative, Smells of jf3 14:53 13:45 Neurological: No deficits noted. jf3 jo3 14:53 13:45 Respiratory: Airway is patent Respiratory effort is even, unlabored, jf3 jo3 14:53 14:46 General: Appears in no apparent distress, uncomfortable, Behavior is appropriate jo3 for age, cooperative, pleasant, jf3 14:53 14:46 Neurological: No deficits noted. Level of Consciousness is awake, alert, Oriented jo3 to person, place, time, jf3 14:53 14:46 Respiratory: Airway is patent Respiratory effort is even, unlabored, jf3 jo3 14:53 14:46 Derm: Skin is pink, warm & dry. jf3 jo3 17:36 17:33 Reassessment: Pt reprted shakiness and feeling like he was in ETOH withdrawal. 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 Pt admits top heavy drinking this week with a positive history of ETOH abuse. Pharmacy called and Librium initiated early to accommodate. Continuing to monitor . jo3 MTDD
[2016-09-13 18:47] VITALS: BP 116/78
--- NOTE | 2016-09-13 19:15 | ECGEPIP ---
Stationary ECG Study [facility] - ED Test Date: 2016-09-13 Pat Name: FIDELIA ORTIZ Department: Room: - Gender: M Accounting Teacher: carol : 1955 Requested By: Ba Yee Order Number: [id number] Reading MD: Ulisses Chacon Measurements Intervals [place] Rate: 68 P: 65 IN: 148 QRS: 19 QRSD: 110 T: 77 QT: 374 QTc: 398 Interpretive Statements SINUS RHYTHM NSTTW ABNORMALITIES POSSIBLE PRIOR INFERIOR INFARCT NO PRIORS Electronically Signed On 09-13-2016 19:15:03 EST by Ulisses Chacon
[2016-09-13] MEDS: MULTIVITAMINS/MINERALS THERAP 1 TAB PO SCH (19:45)
[2016-09-13] MEDS: FOLIC ACID 1 MG TAB PO SCH (19:45)
[2016-09-13] MEDS: PANTOPRAZOLE 40MG TAB (PROTONIX) PO SCH (19:45)
[2016-09-13] MEDS: chlordiazePOXIDE 25 MG CAP PO SCH ×2 (19:45→23:17)
[2016-09-13] MEDS: THIAMINE 100 MG TAB PO SCH (19:45)
[2016-09-13] MEDS: NS 1,000 ML IV SCH (20:00)
[2016-09-13 20:11] VITALS: BP 139/87
[2016-09-13] MEDS: LISINOPRIL 20 MG TAB PO SCH (21:22)
[2016-09-13] MEDS: SERTRALINE 100 MG TAB PO SCH (21:22)
[2016-09-13] MEDS: SIMVASTATIN 20 MG TAB PO SCH (21:22)
[2016-09-13] MEDS: predniSONE 20 MG TAB PO SCH (21:22)
[2016-09-13] MEDS: PERCOCET 5MG/325MG TAB PO PRN (21:24)
[2016-09-13] MEDS: HEPARIN SOD (PORCINE) 5000 UNITS/ML VIAL SC SCH (21:24)
[2016-09-13 23:59] VITALS: BP 168/88
[2016-09-14] MEDS: chlordiazePOXIDE 25 MG CAP PO SCH ×3 (03:25→11:35)
[2016-09-14] MEDS: PERCOCET 5MG/325MG TAB PO PRN ×2 (03:26→21:20)
[2016-09-14 04:45] VITALS: BP 161/89
[2016-09-14 05:48] LABS: BASO % 0.3 % (0.0-1.0); EOS # 0.1 K/mm3 (0.0-0.50); LARGE UNSTAINED CELL # 0.1 K/mm3 (0.0-0.4); LYMPH # 0.3 K/mm3 (1.5-4.5); MEAN CORPUSCULAR HEMOGLOBIN 33.7 pg (27.0-33.0); MEAN CORPUSCULAR VOLUME 99.1 fl (80.0-96.0); MONO # 0.2 K/mm3 (0.0-0.8); MONO % 3.5 % (0.0-5.0); NEUTROPHILS # 3.9 K/mm3 (1.8-7.7); NEUTROPHILS % 86.2 % (36.0-66.0); PLATELET COUNT, AUTOMATED 157 k/mm3 (150-450); RED CELL DISTRIBUTION WIDTH 12.9 % (11.5-14.5); WHITE BLOOD COUNT 4.6 K/mm3 (4.0-10.0)
[2016-09-14 06:09] LABS: ALBUMIN 3.6 GM/DL (3.2-5.2); ALBUMIN/GLOBULIN RATIO 1.03 (1.00-1.93); ALKALINE PHOSPHATASE 109 U/L (45-117); ALT/SGPT 44 U/L (12-78); ANION GAP 9 MEQ/L (8-16); AST/SGOT 36 U/L (15-37); BILIRUBIN,TOTAL 0.6 MG/DL (0.2-1.0); BLOOD UREA NITROGEN 19 MG/DL (7-18); CALCIUM LEVEL 8.6 MG/DL (8.5-10.1); CARBON DIOXIDE LEVEL 24 MEQ/L (21-32); CHLORIDE LEVEL 103 MEQ/L (98-107); CREATININE FOR GFR 0.77 MG/DL (0.70-1.30); GLOMERULAR FILTRATION RATE > 60.0 (>56); GLUCOSE, FASTING 102 MG/DL (70-105); MAGNESIUM LEVEL 2.1 MG/DL (1.8-2.4); POTASSIUM SERUM 4.2 MEQ/L (3.5-5.1); SODIUM LEVEL 136 MEQ/L (136-145); TOTAL PROTEIN 7.1 GM/DL (6.4-8.2)
[2016-09-14] MEDS: HEPARIN SOD (PORCINE) 5000 UNITS/ML VIAL SC SCH ×3 (06:39→21:19)
[2016-09-14] MEDS: NS 1,000 ML IV SCH ×3 (07:29→13:53)
[2016-09-14 08:00] VITALS: BP 171/88
[2016-09-14] MEDS: buPROPion **XL** TABLET 150MG (WELLBUTRIN XL) PO SCH (08:27)
[2016-09-14] MEDS: predniSONE 20 MG TAB PO SCH ×2 (08:27→21:19)
[2016-09-14] MEDS: THIAMINE 100 MG TAB PO SCH (08:27)
[2016-09-14] MEDS: FOLIC ACID 1 MG TAB PO SCH (08:27)
[2016-09-14] MEDS: ASPIRIN 325 MG TAB PO SCH (08:27)
[2016-09-14] MEDS: PANTOPRAZOLE 40MG TAB (PROTONIX) PO SCH (08:28)
[2016-09-14] MEDS: MULTIVITAMINS/MINERALS THERAP 1 TAB PO SCH (08:28)
--- NOTE | 2016-09-14 10:42 | REP ---
MRI brain without contrast 09/14/2016 Indication: Possible CVA; patient fell from truck, landing on left shoulder . Pt. complains of neck and back pain; confusion and unsteady gait Comparison: CT brain 09/13/2016 Findings: Study is limited due to patient confusion difficulty catching breath and the patient declined to complete MRI exam T2 axial, diffusion ,and honing machine operator images only of the brain are provided for interpretation. There is mild generalized cerebral volume loss. Diffusion images are without evidence of recent ischemia. There are no visualized extra-axial fluid collections. There is no obvious intracranial hemorrhage although evaluation is limited without T1 and GRE heme sequences. Seventh and eighth cranial nerves are symmetric in appearance in the internal auditory canals. Visualized portions of paranasal sinuses and mastoid sinuses are clear bilaterally. Impression: limited incomplete study due to patient factors. No evidence of acute infarct. No obvious intracranial hemorrhage although sequences tailored for bleeding/ hematoma could not be obtained. Signed by Zina Myrick MD 09/14/2016 10:33 A
--- NOTE | 2016-09-14 10:42 | REP ---
MRA BRAIN WITHOUT CONTRAST: HISTORY: Infarction. 3D [id number] MR angiography was performed at the level of the [place]. 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 The aneurysm measures 2 x 1 mm. The aneurysm projects lateral from the cavernous left internal carotid artery. There is no other aneurysm or arteriovenous malformation. Mild atherosclerotic disease involves the cavernous and supraclinoid internal carotid arteries. The A1 segment of the left _anterior cerebral__artery is hypoplastic. Major intracranial vessels are patent. The left vertebral artery is dominant. IMPRESSION: 1. There is no aneurysm or arteriovenous malformation. 2. Atherosclerotic disease as described above. Signed by Adriano Hawkins MD 09/14/2016 10:47 A
[2016-09-14 12:00] VITALS: BP 152/66
[2016-09-14] MEDS: NICOTINE 21MG/24HR 1 EA TRANSDERMAL TD SCH (13:53)
[2016-09-14] MEDS: OXAZEPAM 15 MG CAP PO SCH ×3 (13:54→23:43)
[2016-09-14 16:00] VITALS: BP 145/96
--- NOTE | 2016-09-14 16:02 | IPNPDOC ---
Text Note Date of Service The patient was seen on 09/14/16 at 15:49. NOTE Subjective: Patient is a 61 year old male with a PMHx of HTN, DLP, Chronic alcohol dependence, Depression and Sciatica who presented to the ER, brought in by his friend because of left arm weakness. Patient had a fall on 09/12 and injured his shoulder, had complaints of weakness since that point. He went to hotel room after that and was found next morning with intoxication. Reports he had a pint of bourbon. Patient was admitted for possible CVA. Patient was seen and examined at bedside. Reports that he is a little tremulous. He still notes shoulder pain. Objective: Vitals (See below) General: Lying in bed, no acute distress, comfortable, AAOx3 HEENT: NC, AT CVS: RRR, +S1S2 Lungs: Fair air entry b/l, mild crackles a b/l lung bases Abdomen: soft, nd, nt, +BSx4 Extremities: no edema, no calf tenderness Neuro: 5/5 muscle strength at LUE, 4/5 at LUE, 5/5 at bilateral lower extremities, no sensory deficit, CN 2-12 grossly intact Assessment and plan: 1. Left arm and leg weakness - possibly radiculopathy 2/2 fall, less likely 2/2 acute cerebrovascular accident - Presented with 1 day history of left arm and left leg weakness after a fall - Physical today reveals weakness limited to LUE - MRI / MRA of brain - negative for - Will f/u Carotid US, ECHO and MRI cervical spine pending - Lipid profile normal - c/w aspirin and continue with home medications - c/w neuro checks 2. Chronic alcohol dependence - long standing history of alcohol dependence - was found to have an elevated alcohol level in the ER - wc/w alcohol withdrawal precautions - will d/c librium protocol, will start serax - c/w Folate, Thiamine and multivitamins 3. Shoulder pain 2/2 mechanical fall - XR negative for fracture - c/w pain control 4. HTN - BP mildly elevated at this time; will re-assess after serax - c/w lisinopril with holding parameters 5. DLP - c/w simvastatin 6. Depression - c/w sertraline 7. Sciatica - reports that he has been having back pain early this week - was seen at urgent care center and received a steroid injection for the pain - was also provided with a prescription for prednisone and Flexeril - no leg weakness noted this morning - c/w pain control 8. Gastrointestinal prophylaxis - c/w protonix 9. DVT prophylaxis - c/w heparin VS,Fishbone, I+O VS, Fishbone, I+O Laboratory Tests 09/14/16 04:54 Calcium Level 8.6, Aspartate Amino Transf (AST/SGOT) 36, Alanine Aminotransferase (ALT/SGPT) 44, Alkaline Phosphatase 109, Total Bilirubin 0.6 # , Total Protein 7.1, Albumin 3.6, Red Blood Count 4.43, Mean Corpuscular Volume 99.1 H, Mean Corpuscular Hemoglobin 33.7 H, Mean Corpuscular Hemoglobin Concent 34.0, Red Cell Distribution Width 12.9, Neutrophils (%) (Auto) 86.2 H, Lymphocytes (%) (Auto) 7.0 L, Monocytes (%) (Auto) 3.5, Eosinophils (%) (Auto) 2.0, Basophils (%) (Auto) 0.3, Neutrophils # (Auto) 3.9, Lymphocytes # (Auto) 0.3 L, Monocytes # (Auto) 0.2, Eosinophils # (Auto) 0.1, Basophils # (Auto) 0.0 Vital Signs Date Time Temp Pulse Resp B/P Pulse Ox O2 Delivery O2 Flow Rate FiO2 09/14/16 12:00 96.0 70 18 152/66 99 Room Air I&O- Last 24 Hours up to 6 AM 09/14/16 06:00 Intake Total 840 ml Output Total 900 ml Balance -60 ml THU RESTREPO MD Sep 14, 2016 15:52
[2016-09-14 20:19] VITALS: BP 135/95
[2016-09-14] MEDS: SERTRALINE 100 MG TAB PO SCH (21:20)
[2016-09-14] MEDS: LISINOPRIL 20 MG TAB PO SCH (21:20)
[2016-09-14] MEDS: SIMVASTATIN 20 MG TAB PO SCH (21:20)
--- NOTE | 2016-09-14 22:09 | ECHO ---
DATE OF PROCEDURE: 09/14/2016 REFERRING PHYSICIAN: Dr. Katie Salazar INDICATION: Acute stroke. HEIGHT: 173 cm WEIGHT: 97.5 kg MEASUREMENTS: Ventricular septum: 1.28 cm (?) Left atrium: 2.6 cm LVOT: 2.1 cm Aortic root: 3.5 cm DOPPLER MEASUREMENTS: Aortic valve velocity: 198.1 cm/s LVOT velocity: 91.0 cm/s LVOT VTI: 19.4 cm/s Mitral E velocity: 52.8 cm/s Mitral A velocity: 79.5 cm/s Mitral deceleration time: 254 ms Trace tricuspid regurgitation. Pulmonary artery systolic pressure 24 mmHg by pulmonary acceleration time method. MITRAL ANNULAR TISSUE DOPPLER: E prime septal: 5.3 cm/s E prime lateral: 5.7 cm/s DESCRIPTION: Rhythm was sinus. This is a moderately technically difficult echocardiogram. This is a 2D, M-mode, color flow Doppler and pulse wave Doppler examination that included mitral annular tissue Doppler. CONCLUSIONS: 1. Normal left ventricle size and internal dimensions. Possible mild concentric left ventricular hypertrophy. 2. Moderately technical difficult echocardiogram. 3. Grade 1 left ventricle (LV) diastolic dysfunction. Impaired relaxation filling pattern. 4. No definite cardiac source of systemic component of embolism identified.
[2016-09-14 23:59] VITALS: BP 135/79
[2016-09-15 04:00] VITALS: BP 122/77
[2016-09-15] MEDS: HEPARIN SOD (PORCINE) 5000 UNITS/ML VIAL SC SCH ×3 (05:49→23:04)
[2016-09-15] MEDS: OXAZEPAM 15 MG CAP PO SCH (05:50)
[2016-09-15] MEDS: PERCOCET 5MG/325MG TAB PO PRN ×3 (05:50→20:48)
[2016-09-15 06:19] LABS: BASO % 0.2 % (0.0-1.0); EOS # 0.1 K/mm3 (0.0-0.50); LARGE UNSTAINED CELL # 0.1 K/mm3 (0.0-0.4); LARGE UNSTAINED CELL % 0.8 % (0.0-4.0); LYMPH # 0.4 K/mm3 (1.5-4.5); LYMPH % 6.9 % (24.0-44.0); MEAN CORPUSCULAR HEMOGLOBIN 34.7 pg (27.0-33.0); MEAN CORPUSCULAR HGB CONC 33.9 g/dl (32.0-36.5); MEAN CORPUSCULAR VOLUME 102.2 fl (80.0-96.0); MONO # 0.2 K/mm3 (0.0-0.8); MONO % 3.3 % (0.0-5.0); NEUTROPHILS # 4.9 K/mm3 (1.8-7.7); NEUTROPHILS % 87.8 % (36.0-66.0); PLATELET COUNT, AUTOMATED 145 k/mm3 (150-450); RED CELL DISTRIBUTION WIDTH 12.8 % (11.5-14.5); WHITE BLOOD COUNT 5.6 K/mm3 (4.0-10.0)
[2016-09-15 06:33] LABS: ALBUMIN 3.3 GM/DL (3.2-5.2); ALKALINE PHOSPHATASE 99 U/L (45-117); ALT/SGPT 29 U/L (12-78); ANION GAP 10 MEQ/L (8-16); AST/SGOT 17 U/L (15-37); BILIRUBIN,TOTAL 0.3 MG/DL (0.2-1.0); BLOOD UREA NITROGEN 23 MG/DL (7-18); CALCIUM LEVEL 8.3 MG/DL (8.5-10.1); CARBON DIOXIDE LEVEL 24 MEQ/L (21-32); CHLORIDE LEVEL 107 MEQ/L (98-107); CREATININE FOR GFR 0.92 MG/DL (0.70-1.30); GLOMERULAR FILTRATION RATE > 60.0 (>56); GLUCOSE, FASTING 132 MG/DL (70-105); MAGNESIUM LEVEL 2.5 MG/DL (1.8-2.4); POTASSIUM SERUM 4.4 MEQ/L (3.5-5.1); SODIUM LEVEL 141 MEQ/L (136-145); TOTAL PROTEIN 6.6 GM/DL (6.4-8.2)
[2016-09-15 08:00] VITALS: BP 156/72
[2016-09-15] MEDS: ASPIRIN 325 MG TAB PO SCH (08:19)
[2016-09-15] MEDS: buPROPion **XL** TABLET 150MG (WELLBUTRIN XL) PO SCH (08:19)
[2016-09-15] MEDS: PANTOPRAZOLE 40MG TAB (PROTONIX) PO SCH (08:19)
[2016-09-15] MEDS: FOLIC ACID 1 MG TAB PO SCH (08:19)
[2016-09-15] MEDS: MULTIVITAMINS/MINERALS THERAP 1 TAB PO SCH (08:19)
[2016-09-15] MEDS: predniSONE 20 MG TAB PO SCH ×2 (08:19→20:47)
[2016-09-15] MEDS: THIAMINE 100 MG TAB PO SCH (08:19)
[2016-09-15] MEDS: NICOTINE 21MG/24HR 1 EA TRANSDERMAL TD SCH (08:20)
[2016-09-15] MEDS ORDERED: ISOVUE-370 76% 100ML VIAL (Q9967) As Ordered ONE (09:01)
--- NOTE | 2016-09-15 10:14 | REP ---
CT ANGIO NECK: HISTORY: Carotid stenosis. CONTRAST: Isovue 370, 75 mL. A partially calcified atherosclerotic plaque is present at the origin of the right internal carotid artery. There is mild stenosis of 10% of the right internal carotid artery at its origin. There is moderate stenosis of 30% of the right internal carotid artery 12 mm from its origin. The origin of the right external carotid artery is normal. A calcified atherosclerotic plaque is present in the origin of the left internal carotid artery. There is mild stenosis of 12% of the left internal carotid artery at its origin. The origin of the left external carotid artery is normal. Calcified atherosclerotic plaques are present in the cavernous internal carotid arteries. These produce at least mild stenosis. A calcified atherosclerotic plaque is present at the origin of the left subclavian artery. There is no significant stenosis. IMPRESSION: 1. Mild stenosis of 10% of the right internal carotid artery. There is moderate stenosis of the right internal carotid artery 12 mm from its origin. 2. Mild stenosis of 12% of the left internal carotid artery at its origin. Signed by Adriano Hawkins MD 09/15/2016 10:27 A
[2016-09-15 12:00] VITALS: BP 157/62
[2016-09-15] MEDS ORDERED: LORazepam 2 MG/ML VIAL (J2060) IV STA (12:53)
[2016-09-15] MEDS ORDERED: SLF 3 ML SYR IV PRN (14:30)
[2016-09-15 16:00] VITALS: BP 136/52
--- NOTE | 2016-09-15 16:31 | IPNPDOC ---
Text Note Date of Service The patient was seen on 09/15/16 at 16:16. NOTE Subjective: Pt states his arm pain is mildly improved. Feels tired today. Objective: Vitals: (see below) General: No acute distress, laying comfortably in bed. HEENT: Moist mucous membranes. Neck: No JVD or lymphadenopathy Cardiac: RRR, No murmurs Pulm: Clear to auscultation b/l. No wheezing, rhonchi Abd: NT/ND + BS Ext: No edema or cyanosis. Left upper extremity - mild weakness with active range of motion. Patient does appear to be limited with his elevation of his left upper extremity secondary to pain and weakness. Patient's does state that the pain is else preventing him from raising his arm. Patient also has pain elicited with external rotation, as well as palpation of the anterior deltoid. Distal pulses intact. Neuro: Strength 5/5 RUE and BLE, 4/5 LUE. CN 2-12 intact. F to N intact Negative pronator drift. Labs (see below) Images: CTA Carotids 09/15/16 IMPRESSION: 1. Mild stenosis of 10% of the right internal carotid artery. There is moderate stenosis of the right internal carotid artery 12 mm from its origin. 2. Mild stenosis of 12% of the left internal carotid artery at its origin. X ray left shoulder 09/13/16 Impression: No acute fracture seen on this single AP view. Ossification along the course of the coracoclavicular ligament consistent with old injury. CT head 09/13/16 Impression: Vascular calcification and diffuse atrophy. No acute intracranial lesion. MRI Brain 09/13/16 IMPRESSION: 1. There is no aneurysm or arteriovenous malformation. 2. Atherosclerotic disease as described above. MRA Brain 09/13/16 Impression: limited incomplete study due to patient factors. No evidence of acute infarct. No obvious intracranial hemorrhage although sequences tailored for bleeding/ hematoma could not be obtained. Carotid u/s 09/13/16 Impression: 50-79% category narrowing in the left ICA by Doppler velocity criteria. CXR 09/13/16 Impression: No active disease. Assessment/Plan 1. Shoulder pain and weakness- likely related to rotator cuff tear, versus cervical spine pathology. He will have a MRI of the cervical spine as well as MRI of the left shoulder today. The patient did have an extensive workup for CVA however this has been negative. Please refer to images above. 2. Alcohol abuse- patient's currently on serax however has been a bit lethargic on it. Serax has been changed to every 24 hours. Thiamine, folic acid, multivitamin. Cessation counseling. 3. Chronic lower back pain with sciatica has been receiving steroid injections outpatient. Was recently prescribed prednisone and Flexeril. No weakness on exam. 4. Hypertension- continue lisinopril 5. Depression- continue SSRI 6. Hyperlipidemia- continue statin 7. GERD- continue PPI DVT prophy: Heparin subcutaneous VS,Fishbone, I+O VS, Fishbone, I+O Laboratory Tests 09/15/16 05:44 Calcium Level 8.3 L, Aspartate Amino Transf (AST/SGOT) 17, Alanine Aminotransferase (ALT/SGPT) 29, Alkaline Phosphatase 99, Total Bilirubin 0.3, Total Protein 6.6, Albumin 3.3, Red Blood Count 4.36, Mean Corpuscular Volume 102.2 H, Mean Corpuscular Hemoglobin 34.7 H, Mean Corpuscular Hemoglobin Concent 33.9, Red Cell Distribution Width 12.8, Neutrophils (%) (Auto) 87.8 H, Lymphocytes (%) (Auto) 6.9 L, Monocytes (%) (Auto) 3.3, Eosinophils (%) (Auto) 1.0, Basophils (%) (Auto) 0.2, Neutrophils # (Auto) 4.9, Lymphocytes # (Auto) 0.4 L, Monocytes # (Auto) 0.2, Eosinophils # (Auto) 0.1, Basophils # (Auto) 0.0 Vital Signs Date Time Temp Pulse Resp B/P Pulse Ox O2 Delivery O2 Flow Rate FiO2 09/15/16 12:54 18 Room Air 09/15/16 12:00 97.0 68 157/62 97 I&O- Last 24 Hours up to 6 AM 09/15/16 06:00 Intake Total 1680 ml Output Total 600 ml Balance 1080 ml VINAYAK SYKES MD Sep 15, 2016 16:31
[2016-09-15] MEDS ORDERED: OXAZEPAM 15 MG CAP PO SCH ×2 (18:00→21:00)
--- NOTE | 2016-09-15 18:03 | REP ---
MRI CERVICAL SPINE WITHOUT CONTRAST: HISTORY: Left upper extremity weakness. Facet hypertrophy is present on the left at the C2-3 level. This produces minimal narrowing of the left C2 neural foramen. The right C2 neural foramen is patent. A disc bulge with associated osteophyte formation is present at the C3-4 level. There is mild effacement of the thecal sac without spinal cord compression. Bilateral uncinate process hypertrophy is present. This produces moderate narrowing of the C3 neural foramina. A disc bulge is present at the C4-5 level. There is mild effacement of the thecal sac without spinal cord compression. The C4 neural foramina are patent. A disc bulge with associated osteophyte formation is present at the C5-6 level. There is moderate effacement of the thecal sac without spinal cord compression. Bilateral uncinate process hypertrophy is present. This produces mild and minimal narrowing of the right and left C5 neural foramina respectively. A disc bulge with associated osteophyte formation is present at the C6-7 level. There is minimal effacement of the thecal sac without spinal cord compression. Bilateral uncinate process hypertrophy is present. This produces mild narrowing of the C6 neural foramina. A disc bulge is present at the C7-T1 level. There is minimal effacement of the thecal sac without spinal cord compression. The C7 neural foramina are patent. There is no other disc bulge or herniation. The remaining neural foramina are patent. The spinal cord is normal in signal intensity. There is no intradural extramedullary lesion. The C3-4 through C6-7 intervertebral discs are decreased in height consistent with disc degeneration. Normal signal intensity is present in the cervical vertebral bodies. IMPRESSION: There is cervical spondylosis at the C2-3 through C7-T1 levels without spinal cord compression. Signed by Adriano Hawkins MD 09/16/2016 08:44 A
--- NOTE | 2016-09-15 19:30 | EDDOCDS ---
Physician Documentation [facility] Name: Renny Toure Age: 61 yrs Sex: Male : 1955 Arrival Date: 09/13/2016 Time: 09:26 Bed D1 Private MD: NO PRIMARY PHYSICIAN, . Disposition: 09/13 11:52 Critical Care:. ml Disposition: 09/13/16 11:20 Hospitalization ordered by Claudia Egan for Inpatient Admission. Preliminary diagnosis are Cerebral infarction - with left sided weakness, Alcohol abuse with intoxication. - Bed requested for PCU. - Status is Inpatient Admission. jo3 - Condition is Stable. - Problem is new. - Symptoms are unchanged. Historical: - Allergies: no known allergies; - Home Meds: 1. simvastatin 40 mg Oral tab 1 tab once daily (Last dose: Unknown) 2. Sertraline Unknown daily (Last dose: Unknown) 3. lisinopril Unknown Oral 1 tab once daily (Last dose: Unknown) 4. buspirone 5 mg oral tab Unknown 2 times per day (Last dose: Unknown) 5. Flexeril 10 mg Oral tab 1 tab 3 times per day (Last dose: 09/13/2016 07:00) - PMHx: Hypertension; Hypercholesterolemia; Depression; Anxiety; DDD; - PSHx: Cholecystectomy; Hernia repair; bilateral knee scope; - Social history: Smoking status: Patient uses tobacco products, heavy tobacco smoker. Patient uses alcohol on a daily basis. No barriers to communication noted, Speaks appropriately for age. - Family history: Not pertinent. - : The pt / caregiver states he / she is not on anticoagulants. Home medication list is obtained from. - Exposure Risk Screening:: None identified. Vital Signs: 09:43 Pulse 98; Resp 16; Temp 96.9(T); Pulse Ox 99% ; Weight 97.52 kg / 214.99 lbs; Height 5 elp ft. 8 in. (172.72 cm); Pain 8/10; 09:45 BP 111 / 74 (auto/); jo3 09:46 BP 111 / 74; dem1 09:46 Pulse 70 MON; Pulse Ox 91% ; jo3 10:15 BP 105 / 74 (auto/); jo3 10:15 Pulse 68 MON; Pulse Ox 91% ; jo3 10:45 BP 147 / 83 (auto/); jo3 10:45 Pulse 84 MON; Pulse Ox 83% ; jo3 10:55 Weight 94.35 kg / 208.01 lbs (M); ct3 11:01 Pulse 74 MON; Pulse Ox 95% ; jo3 11:15 BP 117 / 70 (auto/); jo3 11:15 Pulse 74 MON; jo3 12:07 BP 119 / 73 (auto/); jo3 12:07 Pulse 82 MON; jo3 12:15 BP 120 / 74 (auto/); jo3 12:15 Pulse 76 MON; jo3 12:30 BP 112 / 94 (auto/); jo3 12:30 Pulse 78 MON; jo3 12:45 BP 128 / 77 (auto/); jo3 12:45 Pulse 76 MON; jo3 13:00 BP 125 / 73 (auto/); jo3 13:00 Pulse 76 MON; jo3 13:15 BP 130 / 87 (auto/); jo3 13:15 Pulse 90 MON; jo3 13:30 BP 128 / 70 (auto/); jo3 13:30 Pulse 80 MON; jo3 13:45 BP 112 / 63 (auto/); jo3 13:45 Pulse 82 MON; jo3 14:00 BP 124 / 68 (auto/); jo3 14:00 Pulse 82 MON; jo3 14:15 BP 126 / 76 (auto/); jo3 14:15 Pulse 84 MON; jo3 16:34 BP 135 / 94 (auto/); jo3 16:34 Pulse 90 MON; Resp 18; Temp 98.9(O); Pulse Ox 96% on R/A; jo3 18:25 BP 135 / 83; Pulse 82 MON; Resp 18; Temp 98.1; Pulse Ox 96% on R/A; jo3 10:55 Body Mass Index 31.63 (94.35 kg, 172.72 cm) ct3 MDM: 09:44 RN interventions must not delay CT ordered. ml 09:44 Tile Burner/Pulse Ox/q 15 min VS ordered. ml 09:44 Accucheck ordered. ml 09:44 IV Saline Lock ordered. ml 09:44 Neuro VS q 15 Minutes ordered. ml 09:44 Patient must be on CC stretcher and weighed via bed scale ordered. ml 09:44 Rhythm Strip to chart ordered. ml 09:44 Stroke assessment pack to bedside ordered. ml 09:45 Basic Metabolic Profile Ordered. EDMS 09:45 CBC with Diff Ordered. EDMS 09:45 Partial Thromboplastin Time Ordered. EDMS 09:45 Prothrombin Time Profile\E\INR Ordered. EDMS 09:45 Type & Screen Ordered. EDMS 09:45 CIP Ordered. EDMS 09:45 Troponin Ordered. EDMS 09:45 CT Head Without Contrast Ordered. EDMS 09:45 ECG WITH READING ER PHYS+CARDIAG ordered. EDMS 09:45 Consult PFS/PSA/Exhaust Emissions Inspector ordered. ml 09:45 Confirm accurate psychiatric medication list and times of last dosage ordered. ml 09:46 Chest, 1 View Ordered. EDMS 09:46 Acetaminophen Level Ordered. EDMS 09:46 Drug Eval Toxicology ED Only Ordered. EDMS 09:46 Ethyl Alcohol (ethanol) Ordered. EDMS 09:46 Liver Profile Ordered. EDMS 09:46 Salicylate Level Ordered. EDMS 09:46 Thyroid Stimulating Hormone Ordered. EDMS 10:21 Financial registration complete. lg 11:07 Basic Metabolic Profile Reviewed. ml 11:07 CBC with Diff Reviewed. ml 11:07 Partial Thromboplastin Time Reviewed. ml 11:07 Prothrombin Time Profile\E\INR Reviewed. ml 11:07 Acetaminophen Level Reviewed. ml 11:07 Ethyl Alcohol (ethanol) Reviewed. ml 11:07 Liver Profile Reviewed. ml 11:07 Salicylate Level Reviewed. ml 11:07 Thyroid Stimulating Hormone Reviewed. ml 11:07 Type & Screen Reviewed. ml 11:07 CIP Reviewed. ml 11:07 Troponin Reviewed. ml 11:07 CT Head Without Contrast Reviewed. ml 11:07 Chest, 1 View Reviewed. ml 11:09 [facility] Payment Agreement was scanned into [employer] and attached to record. lg 11:12 Drug Eval Toxicology ED Only Reviewed. ml 11:14 BED REQUEST+ADM ordered. EDMS 12:07 MRA BRAIN W/O CONTRAST Ordered. EDMS 12:07 MRI Brain without Contrast Ordered. EDMS 12:07 Shoulder 1 view Ordered. EDMS 12:12 PHYSICAL THERAPY EVAL & TREAT ordered. EDMS 12:12 Duplex,carotid (complete) Ordered. EDMS 12:12 Admission / Observation Status ordered. EDMS 12:13 ECHOCARD,DOPPLER/COLOR FLOW ordered. EDMS 12:13 2 GRAM SODIUM DIET ordered. EDMS 12:13 HEMOGLOBIN A1C Ordered. EDMS 12:27 MRI Spine,Cervical without con Ordered. EDMS 13:44 T-Sheet-- Draft Copy was scanned into [employer] and attached to record. se 15:36 oxyCODONE-acetaminophen 5 mg-325 mg 2 tabs PO once ordered. jo3 17:29 Librium 50 mg PO once ordered. jo3 17:29 Multivitamins W-Minerals 1 tabs PO once ordered. jo3 17:29 Pantoprazole 40 mg PO once ordered. jo3 17:29 folic acid 1 mg PO once ordered. jo3 17:29 Thiamine 100 mg PO once ordered. jo3 18:06 Nicotine Patch 21 mg/24 hr 1 applic Transdermal once ordered. 09/14 09:39 ECG/EKG was scanned into [employer] and attached to record. gb Administered Medications: 09/13 15:36 Drug: oxyCODONE-acetaminophen 2 tabs [oxycodone-acetaminophen 5 mg-325 mg tablet (2 jo3 tabs)] Route: PO; 17:25 Drug: Librium 50 mg Route: PO; jo3 17:25 Drug: Multivitamins W-Minerals 1 tabs Route: PO; jo3 17:25 Drug: Pantoprazole 40 mg [pantoprazole 40 mg tablet,delayed release (1 tabs)] Route: PO;jo3 17:25 Drug: folic acid 1 mg [folic acid 1 mg tablet (1 tabs)] Route: PO; jo3 17:25 Drug: Thiamine 100 mg [thiamine HCl (vitamin B1) 100 mg tablet (1 tabs)] Route: PO; jo3 18:10 Drug: Nicotine 1 applic [nicotine 21 mg/24 hr daily transdermal patch (1 patches)] jo3 Route: Transdermal; Site: left upper arm; Critical Care Time: 11:52 Critical care time: Bedside Care: 90 minutes, Consultation: 10 minutes, Family ml Intervention: 10 minutes. Total time: 110 minutes Signatures: Dispatcher [employer] EDTN Ba Yee MD MD ml Yolanda Guevara, Reg Reg Mo Albright, Reg Reg Mariana McgrathRN RN jo3 Elliott Mercer RN RN ml6 Molly Bermudez RN RN [facility]2 Gabby Mendez [facility] The chart was reviewed and I authenticate all verbal orders and agree with the evaluation and treatment provided.Corrections: (The following items were deleted from the chart) 12:58 12:14 CARDIAC RISK PROFILE ordered. EDMS EDMS Attachments: :09 [facility] Payment Agreement lg 13:44 T-Sheet-- Draft Copy [facility] 09/14 09:39 ECG/EKG gb Chart Complete MTDD
--- NOTE | 2016-09-15 19:30 | EDDOCDS ---
Physician Documentation [facility] Name: Renny Toure Age: 61 yrs Sex: Male : 1955 Arrival Date: 09/13/2016 Time: 09:26 Bed D1 Private MD: NO PRIMARY PHYSICIAN, . Disposition: 09/13 11:52 Critical Care:. ml Disposition: 09/13/16 11:20 Hospitalization ordered by Claudia Egan for Inpatient Admission. Preliminary diagnosis are Cerebral infarction - with left sided weakness, Alcohol abuse with intoxication. - Bed requested for PCU. - Status is Inpatient Admission. jo3 - Condition is Stable. - Problem is new. - Symptoms are unchanged. Historical: - Allergies: no known allergies; - Home Meds: 1. simvastatin 40 mg Oral tab 1 tab once daily (Last dose: Unknown) 2. Sertraline Unknown daily (Last dose: Unknown) 3. lisinopril Unknown Oral 1 tab once daily (Last dose: Unknown) 4. buspirone 5 mg oral tab Unknown 2 times per day (Last dose: Unknown) 5. Flexeril 10 mg Oral tab 1 tab 3 times per day (Last dose: 09/13/2016 07:00) - PMHx: Hypertension; Hypercholesterolemia; Depression; Anxiety; DDD; - PSHx: Cholecystectomy; Hernia repair; bilateral knee scope; - Social history: Smoking status: Patient uses tobacco products, heavy tobacco smoker. Patient uses alcohol on a daily basis. No barriers to communication noted, Speaks appropriately for age. - Family history: Not pertinent. - : The pt / caregiver states he / she is not on anticoagulants. Home medication list is obtained from. - Exposure Risk Screening:: None identified. Vital Signs: 09:43 Pulse 98; Resp 16; Temp 96.9(T); Pulse Ox 99% ; Weight 97.52 kg / 214.99 lbs; Height 5 elp ft. 8 in. (172.72 cm); Pain 8/10; 09:45 BP 111 / 74 (auto/); jo3 09:46 BP 111 / 74; dem1 09:46 Pulse 70 MON; Pulse Ox 91% ; jo3 10:15 BP 105 / 74 (auto/); jo3 10:15 Pulse 68 MON; Pulse Ox 91% ; jo3 10:45 BP 147 / 83 (auto/); jo3 10:45 Pulse 84 MON; Pulse Ox 83% ; jo3 10:55 Weight 94.35 kg / 208.01 lbs (M); ct3 11:01 Pulse 74 MON; Pulse Ox 95% ; jo3 11:15 BP 117 / 70 (auto/); jo3 11:15 Pulse 74 MON; jo3 12:07 BP 119 / 73 (auto/); jo3 12:07 Pulse 82 MON; jo3 12:15 BP 120 / 74 (auto/); jo3 12:15 Pulse 76 MON; jo3 12:30 BP 112 / 94 (auto/); jo3 12:30 Pulse 78 MON; jo3 12:45 BP 128 / 77 (auto/); jo3 12:45 Pulse 76 MON; jo3 13:00 BP 125 / 73 (auto/); jo3 13:00 Pulse 76 MON; jo3 13:15 BP 130 / 87 (auto/); jo3 13:15 Pulse 90 MON; jo3 13:30 BP 128 / 70 (auto/); jo3 13:30 Pulse 80 MON; jo3 13:45 BP 112 / 63 (auto/); jo3 13:45 Pulse 82 MON; jo3 14:00 BP 124 / 68 (auto/); jo3 14:00 Pulse 82 MON; jo3 14:15 BP 126 / 76 (auto/); jo3 14:15 Pulse 84 MON; jo3 16:34 BP 135 / 94 (auto/); jo3 16:34 Pulse 90 MON; Resp 18; Temp 98.9(O); Pulse Ox 96% on R/A; jo3 18:25 BP 135 / 83; Pulse 82 MON; Resp 18; Temp 98.1; Pulse Ox 96% on R/A; jo3 10:55 Body Mass Index 31.63 (94.35 kg, 172.72 cm) ct3 MDM: 09:44 RN interventions must not delay CT ordered. ml 09:44 Derrick Engineer/Pulse Ox/q 15 min VS ordered. ml 09:44 Accucheck ordered. ml 09:44 IV Saline Lock ordered. ml 09:44 Neuro VS q 15 Minutes ordered. ml 09:44 Patient must be on CC stretcher and weighed via bed scale ordered. ml 09:44 Rhythm Strip to chart ordered. ml 09:44 Stroke assessment pack to bedside ordered. ml 09:45 Basic Metabolic Profile Ordered. EDMS 09:45 CBC with Diff Ordered. EDMS 09:45 Partial Thromboplastin Time Ordered. EDMS 09:45 Prothrombin Time Profile\E\INR Ordered. EDMS 09:45 Type & Screen Ordered. EDMS 09:45 CIP Ordered. EDMS 09:45 Troponin Ordered. EDMS 09:45 CT Head Without Contrast Ordered. EDMS 09:45 ECG WITH READING ER PHYS+CARDIAG ordered. EDMS 09:45 Consult PFS/PSA/Accelerator Technician ordered. ml 09:45 Confirm accurate psychiatric medication list and times of last dosage ordered. ml 09:46 Chest, 1 View Ordered. EDMS 09:46 Acetaminophen Level Ordered. EDMS 09:46 Drug Eval Toxicology ED Only Ordered. EDMS 09:46 Ethyl Alcohol (ethanol) Ordered. EDMS 09:46 Liver Profile Ordered. EDMS 09:46 Salicylate Level Ordered. EDMS 09:46 Thyroid Stimulating Hormone Ordered. EDMS 10:21 Financial registration complete. lg 11:07 Basic Metabolic Profile Reviewed. ml 11:07 CBC with Diff Reviewed. ml 11:07 Partial Thromboplastin Time Reviewed. ml 11:07 Prothrombin Time Profile\E\INR Reviewed. ml 11:07 Acetaminophen Level Reviewed. ml 11:07 Ethyl Alcohol (ethanol) Reviewed. ml 11:07 Liver Profile Reviewed. ml 11:07 Salicylate Level Reviewed. ml 11:07 Thyroid Stimulating Hormone Reviewed. ml 11:07 Type & Screen Reviewed. ml 11:07 CIP Reviewed. ml 11:07 Troponin Reviewed. ml 11:07 CT Head Without Contrast Reviewed. ml 11:07 Chest, 1 View Reviewed. ml 11:09 [facility] [place] was [place] into [employer] and attached to record. lg 11:12 Drug Eval Toxicology ED Only Reviewed. ml 11:14 BED REQUEST+ADM ordered. EDMS 12:07 MRA BRAIN W/O CONTRAST Ordered. EDMS 12:07 MRI Brain without Contrast Ordered. EDMS 12:07 Shoulder 1 view Ordered. EDMS 12:12 PHYSICAL THERAPY EVAL & TREAT ordered. EDMS 12:12 Duplex,carotid (complete) Ordered. EDMS 12:12 Admission / Observation Status ordered. EDMS 12:13 ECHOCARD,DOPPLER/COLOR FLOW ordered. EDMS 12:13 2 GRAM SODIUM DIET ordered. EDMS 12:13 HEMOGLOBIN A1C Ordered. EDMS 12:27 MRI Spine,Cervical without con Ordered. EDMS 13:44 T-Sheet-- Draft Copy was scanned into [employer] and attached to record. se 15:36 oxyCODONE-acetaminophen 5 mg-325 mg 2 tabs PO once ordered. jo3 17:29 Librium 50 mg PO once ordered. jo3 17:29 Multivitamins W-Minerals 1 tabs PO once ordered. jo3 17:29 Pantoprazole 40 mg PO once ordered. jo3 17:29 folic acid 1 mg PO once ordered. jo3 17:29 Thiamine 100 mg PO once ordered. jo3 18:06 Nicotine Patch 21 mg/24 hr 1 applic Transdermal once ordered. 09/14 09:39 ECG/EKG was scanned into [employer] and attached to record. gb Administered Medications: 09/13 15:36 Drug: oxyCODONE-acetaminophen 2 tabs [oxycodone-acetaminophen 5 mg-325 mg tablet (2 jo3 tabs)] Route: PO; 17:25 Drug: Librium 50 mg Route: PO; jo3 17:25 Drug: Multivitamins W-Minerals 1 tabs Route: PO; jo3 17:25 Drug: Pantoprazole 40 mg [pantoprazole 40 mg tablet,delayed release (1 tabs)] Route: PO;jo3 17:25 Drug: folic acid 1 mg [folic acid 1 mg tablet (1 tabs)] Route: PO; jo3 17:25 Drug: Thiamine 100 mg [thiamine HCl (vitamin B1) 100 mg tablet (1 tabs)] Route: PO; jo3 18:10 Drug: Nicotine 1 applic [nicotine 21 mg/24 hr daily transdermal patch (1 patches)] jo3 Route: Transdermal; Site: left upper arm; Critical Care Time: 11:52 Critical care time: Bedside Care: 90 minutes, Consultation: 10 minutes, Family ml Intervention: 10 minutes. Total time: 110 minutes Signatures: Dispatcher [employer] EDSD Ba Yee MD MD ml Yolanda Guevara, Reg Reg Mo Albright, Reg Reg Mariana McgrathRN RN jo3 Elliott Mercer RN RN ml6 Molly Bermudez RN RN [facility] Gabby Mendez [facility] The chart was reviewed and I authenticate all verbal orders and agree with the evaluation and treatment provided.Corrections: (The following items were deleted from the chart) 12:58 12:14 CARDIAC RISK PROFILE ordered. EDMS EDMS Attachments: :09 [facility] Payment Agreement lg 13:44 T-Sheet-- Draft Copy [facility] 09/14 09:39 ECG/EKG gb Chart Complete MTDD
--- NOTE | 2016-09-15 19:30 | EDDOCDS ---
Nurse's Notes [facility] Name: Renny Toure Age: 61 yrs Sex: Male : 1955 Arrival Date: 09/13/2016 Time: 09:26 Bed D1 Private MD: NO PRIMARY PHYSICIAN, . Diagnosis: Cerebral infarction-with left sided weakness;Alcohol abuse with intoxication Presentation: 09/13 09:42 Presenting complaint: Patient states: states left arm weakness since lastnight, patient ml6 states that he has been drinking all night. The last date and time the patient was known to be well was was at 20:00 on September 12, 2015. No acute neurological deficit is noted. Pre-hospital glucose is not applicable to this patient. Adult Sepsis Screening: The patient does not have new or worsening altered mentation. Patient's respiratory rate is less than 22. Systolic blood pressure is greater than 100. Patient has a qSOFA score of 0- Negative Sepsis Screen. Suicide/Homicide risk assessment- the patient denies having any suicidal and/or homicidal ideations and does not present with any other emotional, behavioral or mental health complaints. Status: Patient is not a director of managed services or dependent. Transition of care: patient was not received from another setting of care. 09:42 Acuity: VICENTE Level 3 ml6 09:42 Method Of Arrival: Walkin/Carried/Asstd 6 09:42 Red Flag criteria, patient assessed and taken directly to a bed. 6 Triage Assessment: 09:42 The onset of the patients symptoms was more than three hours ago. General: Appears in ml6 no apparent distress, Behavior is drowsy, Smells of alcohol. Pain: Denies pain. HIV screening NA for this visit Offered previously. Neurological: Level of Consciousness is lethargic, Oriented to person, place, Him Coder are weak on left Moves all extremities. Weakness in bilateral hand's) arm(s) leg(s) foot/feet Gait is unsteady, Speech is slurred, Facial symmetry appears normal, Reports no additional symptoms. Cardiovascular: No deficits noted. Respiratory: No deficits noted. Historical: - Allergies: no known allergies; - Home Meds: 1. simvastatin 40 mg Oral tab 1 tab once daily (Last dose: Unknown) 2. Sertraline Unknown daily (Last dose: Unknown) 3. lisinopril Unknown Oral 1 tab once daily (Last dose: Unknown) 4. buspirone 5 mg oral tab Unknown 2 times per day (Last dose: Unknown) 5. Flexeril 10 mg Oral tab 1 tab 3 times per day (Last dose: 09/13/2016 07:00) - PMHx: Hypertension; Hypercholesterolemia; Depression; Anxiety; DDD; - PSHx: Cholecystectomy; Hernia repair; bilateral knee scope; - Social history: Smoking status: Patient uses tobacco products, heavy tobacco smoker. Patient uses alcohol on a daily basis. No barriers to communication noted, Speaks appropriately for age. - Family history: Not pertinent. - : The pt / caregiver states he / she is not on anticoagulants. Home medication list is obtained from. - Exposure Risk Screening:: None identified. Screenin:13 Screening information is obtained from the patient. Fall risk: No risks identified. jo3 Assistance ADL's: requires no assistance with activities of daily living. Abuse/DV Screen: The patient / caregiver reports he/she is: not in a situation that causes fear, pain or injury. Nutritional screening: No deficits noted. Advance Directives: There is no active DNR order. home support is adequate. Assessment: 10:13 General: Appears in no apparent distress, comfortable, Behavior is cooperative, Smells jo3 of alcohol. Neurological: Level of Consciousness is awake, alert, Oriented to person, place, time, Him Coder are equal bilaterally Moves all extremities. Speech Pt reports feeling "stupid". States he doesn't feel like he's thinking right . Cardiovascular: Rhythm is sinus rhythm No ectopy. Chest pain is denied. Respiratory: Airway is patent Respiratory effort is even, unlabored. Derm: Skin is pink, warm & dry. Musculoskeletal: Reports Left arm pain and right arm weakness and pain. 10:30 Reassessment: Patient appears in no apparent distress at this time. No changes noted in jo3 neuro assessment at this time . 10:45 Reassessment: Patient appears in no apparent distress at this time. No changes in neuro jo3 assessment . 11:00 General: Appears in no apparent distress, comfortable, Behavior is appropriate for age, jo3 cooperative. Neurological: Level of Consciousness is awake, alert, Oriented to person, place, time, Him Coder are weak on left Definitive weakness noted in left java systems analyst, not perceived in initial assessment by this technical document writer . Moves all extremities. Respiratory: Airway is patent Respiratory effort is even, unlabored. 11:51 General: Appears in no apparent distress, comfortable, Behavior is appropriate for age, jo3 cooperative. Neurological: Level of Consciousness is awake, alert, Oriented to person, place, time, Him Coder are weak on left Moves all extremities. Speech Pt continues to report feeling "foggy". EENT: No deficits noted. Cardiovascular: Rhythm is sinus rhythm No ectopy. Chest pain is denied. Respiratory: Airway is patent Respiratory effort is even, unlabored. Derm: Skin is pink, warm & dry. 12:40 Reassessment: Patient appears in no apparent distress at this time. No significant jo3 changes noted at this time. Awaiting available bed for admission. Aware of plan of care . 13:40 Reassessment: Patient appears in no apparent distress at this time. General: Appears in jo3 no apparent distress, comfortable, Behavior is appropriate for age, cooperative, Smells of. Neurological: No deficits noted. Respiratory: Airway is patent Respiratory effort is even, unlabored. 14:45 General: Appears in no apparent distress, uncomfortable, Behavior is appropriate for jo3 age, cooperative, pleasant. Neurological: No deficits noted. Level of Consciousness is awake, alert, Oriented to person, place, time. Respiratory: Airway is patent Respiratory effort is even, unlabored. Derm: Skin is pink, warm & dry. 15:45 General: Appears in no apparent distress, comfortable, Behavior is appropriate for age, jo3 cooperative. Neurological: No changes noted . Cardiovascular: No deficits noted. Derm: Skin is pink, warm & dry. 17:20 Reassessment: Pt reprted shakiness and feeling like he was in ETOH withdrawal. BP and jo3 pulse noted to be increasing by this technical document writer. Pt admits top heavy drinking this week with a positive history of ETOH abuse. Pharmacy called and Librium initiated early to accommodate. Continuing to monitor . Vital Signs: 09:43 Pulse 98; Resp 16; Temp 96.9(T); Pulse Ox 99% ; Weight 97.52 kg; Height 5 ft. 8 in. elp (172.72 cm); Pain /; 09:45 BP 111 / 74 (auto/); jo3 09:46 BP 111 / 74; dem1 09:46 Pulse 70 MON; Pulse Ox 91% ; jo3 10:15 BP 105 / 74 (auto/); jo3 10:15 Pulse 68 MON; Pulse Ox 91% ; jo3 10:45 BP 147 / 83 (auto/); jo3 10:45 Pulse 84 MON; Pulse Ox 83% ; jo3 10:55 Weight 94.35 kg (M); ct3 11:01 Pulse 74 MON; Pulse Ox 95% ; jo3 11:15 BP 117 / 70 (auto/); jo3 11:15 Pulse 74 MON; jo3 12:07 BP 119 / 73 (auto/); jo3 12:07 Pulse 82 MON; jo3 12:15 BP 120 / 74 (auto/); jo3 12:15 Pulse 76 MON; jo3 12:30 BP 112 / 94 (auto/); jo3 12:30 Pulse 78 MON; jo3 12:45 BP 128 / 77 (auto/); jo3 12:45 Pulse 76 MON; jo3 13:00 BP 125 / 73 (auto/); jo3 13:00 Pulse 76 MON; jo3 13:15 BP 130 / 87 (auto/); jo3 13:15 Pulse 90 MON; jo3 13:30 BP 128 / 70 (auto/); jo3 13:30 Pulse 80 MON; jo3 13:45 BP 112 / 63 (auto/); jo3 13:45 Pulse 82 MON; jo3 14:00 BP 124 / 68 (auto/); jo3 14:00 Pulse 82 MON; jo3 14:15 BP 126 / 76 (auto/); jo3 14:15 Pulse 84 MON; jo3 16:34 BP 135 / 94 (auto/); jo3 16:34 Pulse 90 MON; Resp 18; Temp 98.9(O); Pulse Ox 96% on R/A; jo3 18:25 BP 135 / 83; Pulse 82 MON; Resp 18; Temp 98.1; Pulse Ox 96% on R/A; jo3 10:55 Body Mass Index 31.63 (94.35 kg, 172.72 cm) ct3 Vitals: 09:29 Log In Time: September 13, 2016 at 09:27. elp 09:43 RN notified that patient meets Red Flag criteria. elp ED Course: 09:28 Patient visited by Jillian Oakes PCA. elp 09:28 NO PRIMARY PHYSICIAN, . is Private Physician. elp 09:28 Patient moved to Waiting elp 09:31 Nayeli Toney,ERMIAS is Primary Nurse. elp 09:31 Patient moved to 9 elp 09:33 Ba Yee MD is Attending Physician. ml 09:33 Patient visited by Ba Yee MD. ml 09:43 Patient visited by Jillian Oakes PCA. elp 09:44 Triage Initiated ml6 09:[address] dsf 09:46 Pt greeted and oriented to ED. Patient advised of names of staff involved in care, [facility] location of call dejesus, wait times and NPO status. Patient has correct armband on for positive identification. Placed in gown. Bed in low position. Call light in reach. director of anesthesia services on. Pulse ox on. NIBP on. 09:47 Patient visited by Milagros Parker. dem1 09:56 Patient moved to Radiology je3 10:01 Patient moved to 9 bar 10:03 EKG done. (by ED staff). Reviewed by Ba Yee MD. nb2 10:05 Patient visited by Jesica Duenas. nb2 10:11 Acetaminophen Level Sent. jo3 10:11 Drug Eval Toxicology ED Only Sent. jo3 10:11 Ethyl Alcohol (ethanol) Sent. jo3 10:11 Liver Profile Sent. jo3 10:11 Salicylate Level Sent. jo3 10:11 Thyroid Stimulating Hormone Sent. jo3 10:11 Troponin Sent. jo3 10:11 CIP Sent. jo3 10:11 Basic Metabolic Profile Sent. jo3 10:13 The patient / caregiver is instructed regarding the plan of care and ED course. jo3 10:13 Inserted saline lock: 18 gauge in right antecubital area. Labs drawn. (by ED staff). jo3 Sent per order to lab. 10:40 CT Head Without Contrast Returned. EDMS 10:40 Chest, 1 View Returned. EDMS 10:56 Patient visited by Laura Catherine PCA. ct3 11:06 Patient visited by Mariana Johns RN. jo3 11:08 Patient name changed from Renny\\S\\\\S\\Toure\\S\\ to Renny\\S\\Gary\\S\\Toure. EDMS 11:09 [facility] Payment Agreement was scanned into [employer] and attached to record. lg 11:14 Patient visited by Mariana Johns RN. jo3 11:19 Claudia Egan is Hospitalizing Provider. ml 11:50 Primary Nurse role handed off by Nayeli Toney RN ct3 11:52 Patient visited by Mariana Johns RN. jo3 12:22 Patient visited by Mariana Johns RN. jo3 12:24 Patient moved to Admit Hold kpj 12:38 Patient moved to Ultrasound br3 12:43 Patient moved to Admit Hold kpj 13:05 Patient moved to 9 br3 13:05 CT Head Without Contrast Returned. EDMS 13:05 Chest, 1 View Returned. EDMS 13:30 Patient moved to Admit Hold kpj 13:44 T-Sheet-- Draft Copy was scanned into [employer] and attached to record. seh 14:07 Patient visited by Gabby Schroeder. sew 14:07 Diet: Patient given regular meal. sew 14:48 Patient visited by Sukhjinder Amador,ERMIAS. jf3 15:00 Patient visited by Mariana Johns RN. jo3 15:12 Shoulder 1 view Returned. EDMS 15:46 Duplex,carotid (complete) Returned. EDMS 17:25 Patient visited by Mariana Johns RN. jo3 18:25 Patient moved to D1 ar3 18:25 No procedures done that require assistance. jo3 09/14 09:39 ECG/EKG was scanned into [employer] and attached to record. gb Administered Medications: 09/13 15:36 Drug: oxyCODONE-acetaminophen 2 tabs [oxycodone-acetaminophen 5 mg-325 mg tablet (2 jo3 tabs)] Route: PO; 17:25 Drug: Librium 50 mg Route: PO; jo3 17:25 Drug: Multivitamins W-Minerals 1 tabs Route: PO; jo3 17:25 Drug: Pantoprazole 40 mg [pantoprazole 40 mg tablet,delayed release (1 tabs)] Route: PO;jo3 17:25 Drug: folic acid 1 mg [folic acid 1 mg tablet (1 tabs)] Route: PO; jo3 17:25 Drug: Thiamine 100 mg [thiamine HCl (vitamin B1) 100 mg tablet (1 tabs)] Route: PO; jo3 18:10 Drug: Nicotine 1 applic [nicotine 21 mg/24 hr daily transdermal patch (1 patches)] jo3 Route: Transdermal; Site: left upper arm; Order Results: Lab Order: Basic Metabolic Profile; SPEC09/13/16 10:08 Test: GLUCOSE, FASTING; Value: 88; Range: 70-105; Units: MG/DL; Status: F Test: BLOOD UREA NITROGEN; Value: 23; Range: 7-18; Abnormal: Above high normal; Units: MG/DL; Status: F Test: CREATININE FOR GFR; Value: 1.14; Range: 0.70-1.30; Units: MG/DL; Status: F Test: GLOMERULAR FILTRATION RATE; Value: > 60.0; Range: >56; Status: F Test: SODIUM LEVEL; Value: 143; Range: 136-145; Units: MEQ/L; Status: F Test: POTASSIUM SERUM; Value: 4.2; Range: 3.5-5.1; Units: MEQ/L; Status: F Test: CHLORIDE LEVEL; Value: 107; Range: 98-107; Units: MEQ/L; Status: F Test: CARBON DIOXIDE LEVEL; Value: 26; Range: 21-32; Units: MEQ/L; Status: F Test: ANION GAP; Value: 10; Range: 8-16; Units: MEQ/L; Status: F Test: CALCIUM LEVEL; Value: 8.5; Range: 8.5-10.1; Units: MG/DL; Status: F Test Note: ; Units are mL/min/1.73 m2 Chronic Kidney Disease Staging per NKF: Stage I & II GFR >=60 Normal to Mildly Decreased Stage III GFR 30-59 Moderately Decreased Stage IV GFR 15-29 Severely Decreased Stage V GFR <15 Very Little GFR Left ESRD GFR <15 on [place] Lab Order: CBC with Diff; SPEC09/13/16 10:08 Test: WHITE BLOOD COUNT; Value: 10.1; Range: 4.0-10.0; Abnormal: Above high normal; Units: K/mm3; Status: F Test: RED BLOOD COUNT; Value: 4.67; Range: 4.30-6.10; Units: M/mm3; Status: F Test: HEMOGLOBIN; Value: 15.4; Range: 14.0-18.0; Units: g/dl; Status: F Test: HEMATOCRIT; Value: 46.7; Range: 42.0-52.0; Units: %; Status: F Test: MEAN CORPUSCULAR VOLUME; Value: 100.2; Range: 80.0-96.0; Abnormal: Above high normal; Units: fl; Status: F Test: MEAN CORPUSCULAR HEMOGLOBIN; Value: 33.1; Range: 27.0-33.0; Abnormal: Above high normal; Units: pg; Status: F Test: MEAN CORPUSCULAR HGB CONC; Value: 33.0; Range: 32.0-36.5; Units: g/dl; Status: F Test: RED CELL DISTRIBUTION WIDTH; Value: 14.2; Range: 11.5-14.5; Units: %; Status: F Test: PLATELET COUNT, AUTOMATED; Value: 208; Range: 150-450; Units: k/mm3; Status: F Test: NEUTROPHILS %; Value: 76.0; Range: 36.0-66.0; Abnormal: Above high normal; Units: %; Status: F Test: LYMPH %; Value: 15.6; Range: 24.0-44.0; Abnormal: Below low normal; Units: %; Status: F Test: MONO %; Value: 5.0; Range: 0.0-5.0; Units: %; Status: F Test: EOS %; Value: 1.2; Range: 0.0-3.0; Units: %; Status: F Test: BASO %; Value: 0.9; Range: 0.0-1.0; Units: %; Status: F Test: LARGE UNSTAINED CELL %; Value: 1.3; Range: 0.0-4.0; Units: %; Status: F Test: NEUTROPHILS #; Value: 7.7; Range: 1.8-7.7; Units: K/mm3; Status: F Test: LYMPH #; Value: 1.7; Range: 1.5-4.5; Units: K/mm3; Status: F Test: MONO #; Value: 0.5; Range: 0.0-0.8; Units: K/mm3; Status: F Test: EOS #; Value: 0.1; Range: 0.0-0.50; Units: K/mm3; Status: F Test: BASO #; Value: 0.1; Range: 0.0-0.2; Units: K/mm3; Status: F Test: LARGE UNSTAINED CELL #; Value: 0.1; Range: 0.0-0.4; Units: K/mm3; Status: F Lab Order: Partial Thromboplastin Time; [facility] 09/13/16 10:08 Test: PARTIAL THROMBOPLASTIN TIME; Value: 26.1; Range: 26.6-37.1; Abnormal: Below low normal; Units: SECONDS; Status: F Lab Order: Prothrombin Time Profile\\E\\INR; [facility] 09/13/16 10:08 Test: PROTHROMBIN TIME; Value: 11.8; Range: 12.3-14.5; Abnormal: Below low normal; Units: SECONDS; Status: F Test: INR; Value: 0.86; Status: F Test Note: ; THERAPUTIC HUMAN INR VALUES INDICATIONS NORMAL RANGES PROPHYLAXIS/TREATMENT OF: VENOUS THROMBOSIS 2.0-3.0 PULMONARY EMBOLISM 2.0-3.0 PREVENTION OF SYSTEMIC EMBOLISM FROM: TISSUE HEART VALVES 2.0-3.0 ACUTE MYOCARDIAL INFARCTION 2.0-3.0 VALVULAR HEART DISEASE 2.0-3.0 ATRIAL FIBRILLATION 2.0-3.0 MECHANICAL VALVES(HIGH RISK) 2.5-3.5 RECURRENT MYOCARDIAL INFARCTION 2.5-3.5 Lab Order: Type & Screen; [facility] 09/13/16 10:08 Test: BLOOD TYPE; Value: A NEG; Status: F Test: AB SCREEN (INDIRECT VICKY)GEL; Value: NEGATIVE; Status: F Lab Order: CIP; [facility] 09/13/16 10:08 Test: CPK CREATINE PHOSPHOKINASE; Value: 219; Range: 39-308; Units: U/L; Status: F Test: CK-MB VALUE MASS; Value: 1.7; Range: 0.0-3.6; Units: NG/ML; Status: F Test: MB/CK RELATIVE INDEX; Value: 0.77; Range: < OR =4; Status: F Test Note: ; DIAGNOSIS CRITERIA MMB ng/ml Relative Index (RI) NON-AMI < or = 5 N/A VALENTIN ZONE > 5 < or = 4 AMI > 5 > 4 Lab Order: Troponin; [facility] 09/13/16 10:08 Test: TROPONIN I; Value: < 0.02; Range: < 0.10; Units: NG/ML; Status: F Test Note: ; Troponin I Reference Interval for [employer] [place] LOCI: 99th Percentile= 0.00-0.045 ng/ml Risk Stratification: <= 0.10 ng/ml Decreased Risk for Adverse Clinical Events. 0.10-1.50 ng/ml Increased Risk for Adverse Clinical Events. Evaluation of additional criterion and/or repeat testing in 2-6 hours is suggested to rule out myocardial damage. >= 1.50 ng/ml Indicative of Myocardial Injury. Lab Order: Acetaminophen Level; SPEC'M 09/13/16 10:08 Test: ACETAMINOPHEN LEVEL; Value: < 2.0; Range: 10.0-30.0; Abnormal: Below low normal; Units: UG/ML; Status: F Lab Order: Drug Eval Toxicology ED Only; SPEC'[facility] 09/13/16 10:49 Test: AMPHETAMINES LEVEL URINE; Value: NEGATIVE; Range: NEGATIVE; Status: F Test: BARBITURATES URINE; Value: NEGATIVE; Range: NEGATIVE; Status: F Test: BENZODIAZEPINES URINE; Value: NEGATIVE; Range: NEGATIVE; Status: F Test: CANNABINOIDS URINE; Value: NEGATIVE; Range: NEGATIVE; Status: F Test: COCAINE METABOLITE URINE; Value: NEGATIVE; Range: NEGATIVE; Status: F Test: METHADONE URINE; Value: NEGATIVE; Range: NEGATIVE; Status: F Test: OPIATES URINE; Value: POSITIVE; Range: NEGATIVE; Abnormal: Above high normal; Status: F Test: TRICYCLIC ANTIDEPRESS URINE; Value: POSITIVE; Range: NEGATIVE; Abnormal: Above high normal; Status: F Test Note: ; ALL PRESUMPTIVE POSITIVE FINDINGS ARE UNCONFIRMED NORMAL VALUES THRESHOLD IN NG/ML AMPHETAMINES 1000 METHAMPHETAMINES 1000 BARBITURATES 300 BENZODIAZEPINES 300 CANNABINOIDS (THC) 50 COCAINE METABOLITE 300 METHADONE 300 OPIATES 300 PHENCYCLIDINE 25 TRICYCLIC ANTIDEPRESSANTS 1000 RESULTS ARE FOR MEDICAL PURPOSES ONLY. ALL URINE SPECIMENS WILL BE SAVED FOR 3 DAYS. IF CONFIRMATION OF A PRESUMPTIVE POSTIVE SCREEN RESULT IS DESIRED, CALL CHEMISTRY ([phone]) AND REQUEST URINE TO BE SENT TO REFERENCE LAB. FOR A LIST OF CLOSELY RELATED COMPOUNDS PLEASE CALL THE LAB. Lab Order: Ethyl Alcohol (ethanol); SPEC'M 09/13/16 10:08 Test: ETHYL ALCOHOL (ETHANOL); Value: 0.286; Range: 0.000-0.010; Abnormal: Above high normal; Units: %; Status: F Lab Order: Liver Profile; [facility] 10:08 Test: AST/SGOT; Value: 136; Range: 15-37; Abnormal: Above high normal; Units: U/L; Status: F Test: ALT/SGPT; Value: 69; Range: 12-78; Units: U/L; Status: F Test: ALKALINE PHOSPHATASE; Value: 106; Range: 45-117; Units: U/L; Status: F Test: BILIRUBIN,TOTAL; Value: 0.3; Range: 0.2-1.0; Units: MG/DL; Status: F Test: BILIRUBIN,DIRECT; Value: < 0.1; Range: 0.0-0.2; Units: MG/DL; Status: F Test: TOTAL PROTEIN; Value: 7.1; Range: 6.4-8.2; Units: GM/DL; Status: F Test: ALBUMIN; Value: 3.9; Range: 3.2-5.2; Units: GM/DL; Status: F Test: ALBUMIN/GLOBULIN RATIO; Value: 1.22; Range: 1.00-1.93; Status: F Lab Order: Salicylate Level; 09/13/16 10:08 Test: SALICYLATE LEVEL; Value: 4.8; Range: 5.0-30.0; Abnormal: Below low normal; Units: MG/DL; Status: F Lab Order: Thyroid Stimulating Hormone; 09/13/16 10:08 Test: THYROID STIMULATING HORMONE; Value: 3.990; Range: 0.358-3.740; Abnormal: Above high normal; Units: uIU/ML; Status: F Lab Order: HEMOGLOBIN A1C; 09/13/16 10:08 Test: HEMOGLOBIN A1c; Value: 5.1; Range: 4.5-6.2; Units: %; Status: F Test: ESTIMATED AVERAGE GLUCOSE; Value: 100; Range: 60-110; Units: MG/DL; Status: F Lab Order: CARDIAC RISK PROFILE; 09/13/16 10:08 Test: TRIGLYCERIDES LEVEL; Value: 142; Range: <150; Units: MG/DL; Status: F Test: CHOLESTEROL LEVEL; Value: 201; Range: <200; Abnormal: Above high normal; Units: MG/DL; Status: F Test: HDL CHOLESTEROL; Value: 96; Range: >40; Units: MG/DL; Status: F Test: LDL CHOLESTEROL; Value: 76.6; Range: <100; Units: MG/DL; Status: F Test: NON-HDL-C; Value: 105; Units: MG/DL; Status: F Test: CHOLESTEROL RISK RATIO; Value: 2.093; Range: <5; Status: F Radiology Order: CT Head Without Contrast Test: CT Head Without Contrast REASON FOR EXAMINATION: left arm wkness;CVA >4.5hrs; Brain CT without contrast:; ; History: Left arm weakness. CVA greater than 4.5 hours. No comparison study.; ; Findings: Digital lateral pyrotechnic mixer radiograph is unremarkable. Bone window; settings demonstrate an intact bony calvarium. Fairly prominent vascular; calcification is noted bilaterally in the distal carotid and vertebral arteries.; The visualized paranasal sinuses are clear. No intraorbital abnormality is; seen.; ; There is mild diffuse cerebral atrophy. There is no evidence of intracranial; hemorrhage. No mass, infarct, extra-axial fluid collection or midline shift is; seen.; ; Impression:; ; Vascular calcification and diffuse atrophy. No acute intracranial lesion.; ; ; Signed by; Goyo Erazo MD 09/13/2016 12:38 P; Radiology Order: Chest, 1 View Test: Chest, 1 View REASON FOR EXAMINATION: wekaness; AP semi-erect chest x-ray: Single view.; ; History: Weakness.; ; Findings: EKG monitoring electrodes overlie the chest. The lungs are well; inflated and clear. The pleural angles are sharp. Heart is not enlarged.; ; Impression:; ; No active disease.; ; ; Signed by; Goyo Erazo MD 09/13/2016 12:38 P; Radiology Order: Shoulder 1 view Test: Shoulder 1 view REASON FOR EXAMINATION: Shoulder pain s/p fall - r/o fracture; Left shoulder: Single view.; ; History: Injury and a fall question fracture.; ; Findings: The glenohumeral and acromioclavicular joints are normally aligned.; There is irregular ossification at the coracoclavicular ligament consistent with; a previous AC separation injury. No acute fracture is seen. There is mild; osteoarthritic spurring at the AC joint.; ; Impression:; ; No acute fracture seen on this single AP view. Ossification along the course of; the coracoclavicular ligament consistent with old injury.; ; ; Signed by; Goyo Erazo MD 09/13/2016 03:39 P; Radiology Order: Duplex,carotid (complete) Test: Duplex,carotid (complete) REASON FOR EXAMINATION: Evaluate for stenosis - RE: CVA; Duplex carotid sonography:; ; History: Evaluate for stenosis. CVA.; ; Findings: Antegrade flow is observed in both vertebral arteries.; ; Right carotid: The right common carotid artery shows mild diffuse intimal; thickening. There is mild mixed plaquing in the proximal ICA on two-dimensional; scanning. Color flow and spectral Doppler interrogation are unremarkable on the; right.; ; Velocity chart right carotid:; ; PSV EDV; ; Right CCA 90.0 cm/s; ; Right ICA 104.0 39.0; ; Right ECA 153.0; ; Right ICA/CCA ratio normal 1.2.; ; Impression:; ; 16 - 49% category narrowing in the right ICA by Doppler velocity criteria.; ; Left carotid: There is mild mixed plaquing in the distal CCA on the left side.; Mixed plaquing is seen in the bulb and proximal ICA on two-dimensional scanning.; Doppler interrogation on the left shows mildly elevated systolic velocities in; the left ICA.; ; Left carotid velocity chart:; ; PSV EDV; ; Left CCA 133.0 cm/s; ; Left ICA 153.0 53.0; ; Left ECA 129.0; ; Left ICA/CCA ratio 1.2.; ; Impression:; ; 50-79% category narrowing in the left ICA by Doppler velocity criteria.; ; ; Signed by; Goyo Erazo MD 09/13/2016 03:39 P; Outcome: 11:20 Decision to Hospitalize by Provider. ml 18:25 Discharge Assessment: Patient awake, alert and oriented x 3. No cognitive and/or jo3 functional deficits noted. Patient verbalized understanding of disposition instructions. patient administered narcotics - yes. Patient was admitted to the hospital or transferred to another facility. The following High Risk Discharge criteria are identified: Yes, ETOH abuse . Admitted to PCU accompanied by nurse, accompanied by tech, via stretcher, on monitor, with chart. Condition: stable. CT Study completed. Property :Personal belongings accompany Pt. 18:29 Patient left the ED. jo3 Signatures: Dispatcher [employer] EDMS Ba Yee MD MD ml Jobson, Karen, RN RN kpmode Recore, Diane bar Barnhardt, Yolanda, Reg Reg gb Ganter, Binae, Reg Reg lg Heldieudonne,MarianaRN ERMIAS jo3 Adriano Garcia Matthew, RN RN ml6 Aissatou Cunha br3 Alecia, Vivienne, INSPECTOR AND CLERK INSPECTOR AND CLERK ar3 Catherine, Laura, INSPECTOR AND CLERK INSPECTOR AND CLERK ct3 Aracelis Rivera,RN RN Milagros Baltazar dem1 Alexandre, Gabby Oakes, Jillian, INSPECTOR AND CLERK INSPECTOR AND CLERK elp Sukhjinder Amador,RN RN jf3 Vanessa, Jesica Guerrero2 Corrections: (The following items were deleted from the chart) 11:13 11:00 Neurological: Level of Consciousness is awake, alert, Oriented to person, place, jo3 time, Him Coder are equal bilaterally Moves all extremities. jo3 14:53 12:45 Reassessment: Patient appears in no apparent distress at this time. No jo3 significant changes noted at this time. Awaiting available bed for admission. Aware of plan of care . jf3 14:53 13:45 Reassessment: Patient appears in no apparent distress at this time. jf3 jo3 14:53 13:45 General: Appears in no apparent distress, comfortable, Behavior is appropriate jo3 for age, cooperative, Smells of jf3 14:53 13:45 Neurological: No deficits noted. jf3 jo3 14:53 13:45 Respiratory: Airway is patent Respiratory effort is even, unlabored, jf3 jo3 14:53 14:46 General: Appears in no apparent distress, uncomfortable, Behavior is appropriate jo3 for age, cooperative, pleasant, jf3 14:53 14:46 Neurological: No deficits noted. Level of Consciousness is awake, alert, Oriented jo3 to person, place, time, jf3 14:53 14:46 Respiratory: Airway is patent Respiratory effort is even, unlabored, jf3 jo3 14:53 14:46 Derm: Skin is pink, warm & dry. jf3 jo3 17:36 17:33 Reassessment: Pt reprted shakiness and feeling like he was in ETOH withdrawal. 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 Pt admits top heavy drinking this week with a positive history of ETOH abuse. Pharmacy called and Librium initiated early to accommodate. Continuing to monitor . jo3 Chart Complete MTDD
[2016-09-15 20:00] VITALS: BP 106/69
[2016-09-15] MEDS: SIMVASTATIN 20 MG TAB PO SCH (20:47)
[2016-09-15] MEDS: SERTRALINE 100 MG TAB PO SCH (20:47)
[2016-09-15] MEDS: LISINOPRIL 20 MG TAB PO SCH (21:00)
[2016-09-15] MEDS: SLF 3 ML SYR IV SCH (22:00)
[2016-09-15] MEDS ORDERED: chlordiazePOXIDE 25 MG CAP PO SCH ×2 (22:00)
[2016-09-15 23:59] VITALS: BP 109/71
[2016-09-16] MEDS: PERCOCET 5MG/325MG TAB PO PRN ×3 (03:17→19:00)
[2016-09-16 04:00] VITALS: BP 131/85
[2016-09-16 05:57] LABS: BASO % 0.2 % (0.0-1.0); EOS % 0.6 % (0.0-3.0); LARGE UNSTAINED CELL # 0.1 K/mm3 (0.0-0.4); LARGE UNSTAINED CELL % 0.9 % (0.0-4.0); LYMPH # 0.4 K/mm3 (1.5-4.5); LYMPH % 7.4 % (24.0-44.0); MEAN CORPUSCULAR HEMOGLOBIN 33.7 pg (27.0-33.0); MEAN CORPUSCULAR HGB CONC 33.7 g/dl (32.0-36.5); MEAN CORPUSCULAR VOLUME 100.1 fl (80.0-96.0); MONO # 0.2 K/mm3 (0.0-0.8); MONO % 3.1 % (0.0-5.0); NEUTROPHILS # 5.3 K/mm3 (1.8-7.7); NEUTROPHILS % 87.9 % (36.0-66.0); PLATELET COUNT, AUTOMATED 166 k/mm3 (150-450); RED CELL DISTRIBUTION WIDTH 13.1 % (11.5-14.5)
[2016-09-16] MEDS: SLF 3 ML SYR IV SCH ×3 (06:00→21:17)
[2016-09-16] MEDS: HEPARIN SOD (PORCINE) 5000 UNITS/ML VIAL SC SCH ×3 (06:00→21:17)
[2016-09-16 06:16] LABS: ALBUMIN 3.4 GM/DL (3.2-5.2); ALBUMIN/GLOBULIN RATIO 0.94 (1.00-1.93); ALKALINE PHOSPHATASE 96 U/L (45-117); ALT/SGPT 33 U/L (12-78); ANION GAP 10 MEQ/L (8-16); AST/SGOT 17 U/L (15-37); BILIRUBIN,TOTAL 0.2 MG/DL (0.2-1.0); BLOOD UREA NITROGEN 27 MG/DL (7-18); CALCIUM LEVEL 7.8 MG/DL (8.5-10.1); CARBON DIOXIDE LEVEL 23 MEQ/L (21-32); CHLORIDE LEVEL 108 MEQ/L (98-107); CREATININE FOR GFR 0.97 MG/DL (0.70-1.30); GLOMERULAR FILTRATION RATE > 60.0 (>56); GLUCOSE, FASTING 145 MG/DL (70-105); MAGNESIUM LEVEL 2.6 MG/DL (1.8-2.4); SODIUM LEVEL 141 MEQ/L (136-145)
[2016-09-16 08:00] VITALS: BP 133/67
[2016-09-16] MEDS ORDERED: CALCIUM GLUCONATE 1,000 MG in D5W MINI-BAG PLUS 100 ML IV ONE (09:00)
[2016-09-16] MEDS ORDERED: OXAZEPAM 15 MG CAP PO SCH (09:00)
[2016-09-16] MEDS: NICOTINE 21MG/24HR 1 EA TRANSDERMAL TD SCH (09:49)
[2016-09-16] MEDS: predniSONE 20 MG TAB PO SCH ×2 (09:50→21:16)
[2016-09-16] MEDS: ASPIRIN 325 MG TAB PO SCH (09:50)
[2016-09-16] MEDS: buPROPion **XL** TABLET 150MG (WELLBUTRIN XL) PO SCH (09:50)
[2016-09-16] MEDS: MULTIVITAMINS/MINERALS THERAP 1 TAB PO SCH (09:50)
[2016-09-16] MEDS: THIAMINE 100 MG TAB PO SCH (09:50)
[2016-09-16] MEDS: PANTOPRAZOLE 40MG TAB (PROTONIX) PO SCH (09:50)
[2016-09-16] MEDS: FOLIC ACID 1 MG TAB PO SCH (09:50)
[2016-09-16 12:00] VITALS: BP 132/81
[2016-09-16 16:00] VITALS: BP 132/82
--- NOTE | 2016-09-16 17:09 | IPNPDOC ---
Text Note Date of Service The patient was seen on 09/16/16 at 17:07. NOTE Subjective: Pt states his left arm pain is much better today. He is more awake and able to tolerate a diet. Objective: Vitals: (see below) General: No acute distress, laying comfortably in bed. HEENT: Moist mucous membranes. Neck: No JVD or lymphadenopathy Cardiac: RRR, No murmurs Pulm: Clear to auscultation b/l. No wheezing, rhonchi Abd: NT/ND + BS Ext: No edema or cyanosis. Left upper extremity - mild weakness with active range of motion. Patient does appear to be limited with his elevation of his left upper extremity secondary to pain and weakness. Patient's does state that the pain is else preventing him from raising his arm. Patient also has pain elicited with external rotation, as well as palpation of the anterior deltoid. Distal pulses intact. Neuro: Strength 5/5 RUE and BLE, 4/5 LUE. CN 2-12 intact. F to N intact Negative pronator drift. Labs (see below) Images: CTA Carotids 09/15/16 IMPRESSION: 1. Mild stenosis of 10% of the right internal carotid artery. There is moderate stenosis of the right internal carotid artery 12 mm from its origin. 2. Mild stenosis of 12% of the left internal carotid artery at its origin. X ray left shoulder 09/13/16 Impression: No acute fracture seen on this single AP view. Ossification along the course of the coracoclavicular ligament consistent with old injury. CT head 09/13/16 Impression: Vascular calcification and diffuse atrophy. No acute intracranial lesion. MRI Brain 09/13/16 IMPRESSION: 1. There is no aneurysm or arteriovenous malformation. 2. Atherosclerotic disease as described above. MRA Brain 09/13/16 Impression: limited incomplete study due to patient factors. No evidence of acute infarct. No obvious intracranial hemorrhage although sequences tailored for bleeding/ hematoma could not be obtained. Carotid u/s 09/13/16 Impression: 50-79% category narrowing in the left ICA by Doppler velocity criteria. CXR 09/13/16 Impression: No active disease. Assessment/Plan 1. Shoulder pain and weakness- likely related to rotator cuff tear, versus cervical spine pathology. MRI of the cervical spine (see above) MRI of the left shoulder today. The patient did have an extensive workup for CVA however this has been negative. Please refer to images above. 2. Alcohol abuse- Will d/c serax today. Cont Thiamine, folic acid, multivitamin. Cessation counseling. 3. Chronic lower back pain with sciatica has been receiving steroid injections outpatient. Was recently prescribed prednisone and Flexeril. No weakness on exam. 4. Hypertension- continue lisinopril 5. Depression- continue SSRI 6. Hyperlipidemia- continue statin 7. GERD- continue PPI DVT prophy: Heparin subcutaneous Cleared by physical therapy for discharge. Plan to discharge in next 24 hours pending MRI shoulder. VS,Fishbone, I+O VS, Fishbone, I+O Laboratory Tests 09/16/16 05:22 Calcium Level 7.8 L, Aspartate Amino Transf (AST/SGOT) 17, Alanine Aminotransferase (ALT/SGPT) 33, Alkaline Phosphatase 96, Total Bilirubin 0.2, Total Protein 7.0, Albumin 3.4, Red Blood Count 4.48, Mean Corpuscular Volume 100.1 H, Mean Corpuscular Hemoglobin 33.7 H, Mean Corpuscular Hemoglobin Concent 33.7, Red Cell Distribution Width 13.1, Neutrophils (%) (Auto) 87.9 H, Lymphocytes (%) (Auto) 7.4 L, Monocytes (%) (Auto) 3.1, Eosinophils (%) (Auto) 0.6, Basophils (%) (Auto) 0.2, Neutrophils # (Auto) 5.3, Lymphocytes # (Auto) 0.4 L, Monocytes # (Auto) 0.2, Eosinophils # (Auto) 0.0, Basophils # (Auto) 0.0 Vital Signs Date Time Temp Pulse Resp B/P Pulse Ox O2 Delivery O2 Flow Rate FiO2 09/16/16 12:00 96.0 92 20 132/81 99 Room Air I&O- Last 24 Hours up to 6 AM 09/16/16 06:00 Intake Total 3260 ml Output Total 1400 ml Balance 1860 ml VINAYAK SYKES MD Sep 16, 2016 17:09
[2016-09-16 20:37] VITALS: BP 123/82
[2016-09-16 21:16] VITALS: BP 123/82
[2016-09-16] MEDS: LISINOPRIL 20 MG TAB PO SCH (21:16)
[2016-09-16] MEDS: SIMVASTATIN 20 MG TAB PO SCH (21:16)
[2016-09-16] MEDS: SERTRALINE 100 MG TAB PO SCH (21:16)
[2016-09-17] MEDS ORDERED: chlordiazePOXIDE 25 MG CAP PO SCH
[2016-09-17 01:55] VITALS: BP 134/79
[2016-09-17] MEDS: PERCOCET 5MG/325MG TAB PO PRN ×3 (02:49→14:33)
[2016-09-17 06:00] VITALS: BP 136/80
[2016-09-17 06:20] LABS: BASO % 0.1 % (0.0-1.0); EOS # 0.1 K/mm3 (0.0-0.50); LARGE UNSTAINED CELL # 0.1 K/mm3 (0.0-0.4); LYMPH # 0.4 K/mm3 (1.5-4.5); LYMPH % 5.3 % (24.0-44.0); MEAN CORPUSCULAR HEMOGLOBIN 33.7 pg (27.0-33.0); MEAN CORPUSCULAR HGB CONC 33.4 g/dl (32.0-36.5); MEAN CORPUSCULAR VOLUME 100.9 fl (80.0-96.0); MONO # 0.3 K/mm3 (0.0-0.8); MONO % 3.4 % (0.0-5.0); NEUTROPHILS # 7.1 K/mm3 (1.8-7.7); NEUTROPHILS % 89.2 % (36.0-66.0); PLATELET COUNT, AUTOMATED 157 k/mm3 (150-450); RED CELL DISTRIBUTION WIDTH 13.2 % (11.5-14.5); WHITE BLOOD COUNT 7.9 K/mm3 (4.0-10.0)
[2016-09-17] MEDS: HEPARIN SOD (PORCINE) 5000 UNITS/ML VIAL SC SCH ×2 (06:27→14:33)
[2016-09-17 06:28] LABS: ALBUMIN 3.3 GM/DL (3.2-5.2); ALBUMIN/GLOBULIN RATIO 1.03 (1.00-1.93); ALKALINE PHOSPHATASE 86 U/L (45-117); ALT/SGPT 30 U/L (12-78); ANION GAP 7 MEQ/L (8-16); AST/SGOT 18 U/L (15-37); BILIRUBIN,TOTAL 0.2 MG/DL (0.2-1.0); BLOOD UREA NITROGEN 21 MG/DL (7-18); CALCIUM LEVEL 7.7 MG/DL (8.5-10.1); CARBON DIOXIDE LEVEL 24 MEQ/L (21-32); CHLORIDE LEVEL 109 MEQ/L (98-107); CREATININE FOR GFR 0.82 MG/DL (0.70-1.30); GLOMERULAR FILTRATION RATE > 60.0 (>56); GLUCOSE, FASTING 125 MG/DL (70-105); MAGNESIUM LEVEL 2.5 MG/DL (1.8-2.4); POTASSIUM SERUM 4.5 MEQ/L (3.5-5.1); SODIUM LEVEL 140 MEQ/L (136-145); TOTAL PROTEIN 6.5 GM/DL (6.4-8.2)
[2016-09-17] MEDS: SLF 3 ML SYR IV SCH ×2 (06:28→14:00)
[2016-09-17] MEDS ORDERED: CALCIUM GLUCONATE 1,000 MG in D5W MINI-BAG PLUS 100 ML IV ONE (08:00)
[2016-09-17] MEDS ORDERED: LORazepam 2 MG/ML VIAL (J2060) IV ONE (08:00)
[2016-09-17] MEDS: THIAMINE 100 MG TAB PO SCH (08:34)
[2016-09-17] MEDS: PANTOPRAZOLE 40MG TAB (PROTONIX) PO SCH (08:34)
[2016-09-17] MEDS: predniSONE 20 MG TAB PO SCH (08:34)
[2016-09-17] MEDS: NICOTINE 21MG/24HR 1 EA TRANSDERMAL TD SCH (08:34)
[2016-09-17] MEDS: FOLIC ACID 1 MG TAB PO SCH (08:34)
[2016-09-17] MEDS: ASPIRIN 325 MG TAB PO SCH (08:34)
[2016-09-17] MEDS: MULTIVITAMINS/MINERALS THERAP 1 TAB PO SCH (08:34)
[2016-09-17] MEDS: buPROPion **XL** TABLET 150MG (WELLBUTRIN XL) PO SCH (08:35)
[2016-09-17 14:00] VITALS: BP 137/80
[2016-09-17] MEDS ORDERED: NICO21PAT TD (14:33)
[2016-09-17] MEDS ORDERED: VITMTA PO (14:33)
[2016-09-17] MEDS ORDERED: THIA100TA PO (14:33)
[2016-09-17] MEDS ORDERED: FOLI1TAB2 PO (14:33)
[2016-09-17] MEDS ORDERED: IBUP200C PO (14:33)
--- NOTE | 2016-09-17 18:06 | DS.PDOC ---
Discharge Summary General Date of Admission Sep 13, 2016 at 12:06 Date of Discharge Sep 17, 2016 at 15:40 Attending Physician: VINAYAK SYKES MD Discharge Summary PROCEDURES PERFORMED DURING STAY: None. COMPLICATIONS/CHIEF COMPLAINT: Left Sided Weakness ADMISSION/DISCHARGE DIAGNOSES: 1. Mechanical fall resulting in a rotator cuff injury 2. Acute on chronic alcohol dependence 3. Hypertension 4. Hyperlipidemia 5. Depression 6. Sciatica 7. GERD HISTORY OF PRESENT ILLNESS/HOSPITAL COURSE: This is a 61-year-old male past medical history of alcohol dependence who has been in remission and has attended AA meetings per his primary care physician. The patient states he is in [place] for a [employer] meeting and states that he was coming out of his truck when he fell and landed on his left shoulder. The patient had denied any loss of consciousness or head trauma. The patient went back to the hotel and had been reported to have some weakness in the left upper extremity. It was reported that patient had a pint of bourbon at the hotel. His friend was concerned with the left arm weakness and brought him to the ED. There was initial concern for CVA and extensive workup was done with no short noted. Given the patient's symptoms of left shoulder pain and MRI of the shoulder was done noting the affected areas of supraspinatus and subscapularis, which do correlate with the physical exam findings of unable to lift his arm above his head. The patient has told me not to tell his about his recent drinking, and his wishes were respected. Patient had worked with physical therapy and tolerated it well. He has been cleared by physical therapy for discharge. Patient is adamant that he would like to get this worked up and treated in [place]. I have spoken to Dr. Myles, who agrees, and recommends a sliding, physical therapy, and orthopedic consultation in [place]. I have spoken to Dr. Janes Nguyễn, the patient's primary care physician in [place] who will be setting all is up for him, as they have a sports medicine team within the clinic. DISCHARGE MEDICATIONS: Please see below. ALLERGIES: Please see below. PHYSICAL EXAMINATION ON DISCHARGE: VITAL SIGNS: Please see below. General: No acute distress, laying comfortably in bed. HEENT: Moist mucous membranes. Neck: No JVD or lymphadenopathy Cardiac: RRR, No murmurs Pulm: Clear to auscultation b/l. No wheezing, rhonchi Abd: NT/ND + BS Ext: No edema or cyanosis. Left upper extremity - mild weakness with active range of motion. Patient does appear improvements in his elevation of his left upper extremity, however limitations are noted secondary to pain. Patient's does state that the pain is preventing him from raising his arm above his head . Patient also has pain elicited with external rotation, as well as palpation of the anterior deltoid. Distal pulses intact. Neuro: Strength 5/5 RUE and BLE, 4/5 LUE. CN 2-12 intact. F to N intact Negative pronator drift. LABORATORY DATA: Please see below. IMAGING: mages: CTA Carotids 09/15/16 IMPRESSION: 1. Mild stenosis of 10% of the right internal carotid artery. There is moderate stenosis of the right internal carotid artery 12 mm from its origin. 2. Mild stenosis of 12% of the left internal carotid artery at its origin. X ray left shoulder 09/13/16 Impression: No acute fracture seen on this single AP view. Ossification along the course of the coracoclavicular ligament consistent with old injury. CT head 09/13/16 Impression: Vascular calcification and diffuse atrophy. No acute intracranial lesion. MRI Brain 09/13/16 IMPRESSION: 1. There is no aneurysm or arteriovenous malformation. 2. Atherosclerotic disease as described above. MRA Brain 09/13/16 Impression: limited incomplete study due to patient factors. No evidence of acute infarct. No obvious intracranial hemorrhage although sequences tailored for bleeding/ hematoma could not be obtained. Carotid u/s 09/13/16 Impression: 50-79% category narrowing in the left ICA by Doppler velocity criteria. CXR 09/13/16 Impression: No active disease. MRI Shoulder 09/17/16 - preliminary read as anterior small area of full- thickness supraspinatus tear as well as partial tear of the subscapularis muscle. I have discussed these findings with Dr. Myles, with recommendations for outpatient follow-up in [place] as per the patient's wishes, as well as a sling and physical therapy. VTE Prophylaxis ordered?: Yes DISCHARGE CONDITION: Stable DISPOSITION: 01 Home, Self-Care ACTIVITY: As tolerated DIET: As tolerated DISCHARGE PLAN AND INSTRUCTIONS: 1. Patient will be following up with Dr. Janes Nguyễn at [facility] in [place]. I did speak with Dr. Nguyễn who will be setting the patient up for physical therapy as well as orthopedic evaluation. Patient will wear the sling in the meantime. TIMEx SPENT ON DISCHARGE: Greater than 30 minutes. Vital Signs/I&Os Vital Signs Date Time Temp Pulse Resp B/P Pulse Ox O2 Delivery O2 Flow Rate FiO2 09/17/16 15:03 20 09/17/16 14:00 96.0 92 137/80 98 Room Air I&O- Last 24 Hours up to 6 AM 09/17/16 06:00 Intake Total 1200 ml Output Total 350 ml Balance 850 ml Laboratory Data Labs 24H Laboratory Tests 2 09/17/16 05:28: Blood Urea Nitrogen 21H, Creatinine 0.82, Sodium Level 140, Potassium Level 4.5 , Chloride Level 109H, Carbon Dioxide Level 24, Calcium Level 7.7L, Aspartate Amino Transf (AST/SGOT) 18, Alanine Aminotransferase (ALT/SGPT) 30, Alkaline Phosphatase 86, Total Bilirubin 0.2, Total Protein 6.5, Albumin 3.3, Albumin/ Globulin Ratio 1.03, Anion Gap 7L, White Blood Count 7.9, Red Blood Count 4.15L , Hemoglobin 14.0, Hematocrit 41.9L, Mean Corpuscular Volume 100.9H, Mean Corpuscular Hemoglobin 33.7H, Mean Corpuscular Hemoglobin Concent 33.4, Red Cell Distribution Width 13.2, Platelet Count 157, Neutrophils (%) (Auto) 89.2H, Lymphocytes (%) (Auto) 5.3L, Monocytes (%) (Auto) 3.4, Eosinophils (%) (Auto) 1.0, Basophils (%) (Auto) 0.1, Neutrophils # (Auto) 7.1, Lymphocytes # (Auto) 0.4L, Monocytes # (Auto) 0.3, Eosinophils # (Auto) 0.1, Basophils # (Auto) 0.0, Glomerular Filtration Rate > 60.0, Large Unclassified Cells # 0.1, Large Unclassified Cells % 1.0, Magnesium Level 2.5H CBC/BMP Laboratory Tests 09/17/16 05:28 Calcium Level 7.7 L, Aspartate Amino Transf (AST/SGOT) 18, Alanine Aminotransferase (ALT/SGPT) 30, Alkaline Phosphatase 86, Total Bilirubin 0.2, Total Protein 6.5, Albumin 3.3, Red Blood Count 4.15 L, Mean Corpuscular Volume 100.9 H, Mean Corpuscular Hemoglobin 33.7 H, Mean Corpuscular Hemoglobin Concent 33.4, Red Cell Distribution Width 13.2, Neutrophils (%) (Auto) 89.2 H, Lymphocytes (%) (Auto) 5.3 L, Monocytes (%) (Auto) 3.4, Eosinophils (%) (Auto) 1.0, Basophils (%) (Auto) 0.1, Neutrophils # (Auto) 7.1, Lymphocytes # (Auto) 0.4 L, Monocytes # (Auto) 0.3, Eosinophils # (Auto) 0.1, Basophils # (Auto) 0.0 Medications Scheduled Bupropion HCl (Bupropion HCl Xl) 300 Mg Tab 300 MG PO DAILY Folic Acid (Folic Acid) 1 Mg Tab 1 MG PO DAILY Lisinopril (Lisinopril) 20 Mg Tab 20 MG PO QHS Multivitamins *[facility] STOCKED* (Thera M Plus *[facility]*) 1 Tab Tab 1 TAB PO DAILY Nicotine (Nicotine Transdermal Syst) 21 Mg/24 Hr Dis 1 PATCH TD DAILY Prednisone (Prednisone) 20 Mg Tab 20 MG PO BID FOR 5 DAYS FILLED / Sertraline HCl (Sertraline HCl) 100 Mg Tab 200 MG PO QHS Simvastatin (Simvastatin) 20 Mg Tab 20 MG PO QHS Thiamine Hcl (Thiamine Hcl) 100 Mg Tab 100 MG PO DAILY Scheduled PRN Ibuprofen (Ibuprofen) 200 Mg Cap 200 MG PO Q6HP PRN PRN pain Allergies Coded Allergies: No Known Drug Allergy (Unverified Allergy, Unknown, 09/13/16) VINAYAK SYKES MD Sep 17, 2016 18:06
--- NOTE | 2016-09-17 19:24 | REP ---
MRI left shoulder without contrast 09/17/2016 Indication: Possible rotator cuff tear Comparison made with a single portable AP view of the left shoulder 09/13/2016 which demonstrated ossification/calcification of the coracoclavicular ligament consistent with previous tear/ injury Technique: Coronal oblique axial and sagittal oblique images were obtained of the left shoulder without contrast. Study read in conjunction with a single AP view left shoulder 09/13/2016. Findings: There is partial full thickness tear within the anterior aspect of the supraspinatus tendon , just proximal to insertion site on the greater tuberosity, which measures 1.8 cm side to side dimension by 1.2 cm AP dimension by 0.4 cm in depth. There is a moderate partial tear involving the subscapularis muscle. There are a few fibers with thinning and fraying within the distal subscapularis tendon at insertion site on the greater tuberosity. There is a small shoulder joint effusion. There is moderate fluid and subcutaneous edema within the anterior aspect of the shoulder. There is no acute fracture or dislocation. There is thickening of the coracoclavicular ligament consistent with prior tear and calcification Impression 1. Anterior small area of full-thickness tear involving the anterior distal supraspinatus tendon, measuring 1.8 cm side to side by 1.2 cm AP by 0.4 cm depth 2. Moderate partial tear involving subscapularis muscle. There are a few fibers of the thinning and fraying /small partial tear within the distal subscapularis tendon at insertion site on the greater tuberosity. 3. Shoulder joint effusion. Subcutaneous edema and fluid in periarticular location. 4. Chronic changes in the coracoclavicular ligament. Signed by Zina Myrick MD 09/17/2016 07:16 P
== END 2016-09-17 15:40 | disposition home or self-care (01) | DRG 351 ==
LOC: M ED 09:26 → M PCU 12:05 → M ED INP 12:06 → M PCU 18:33 → M MSPAV 09-17 01:40
PROVIDERS: ADMIT Internal Medicine; ATTEND Internal Medicine
DX: S46.012A Strain of muscle(s) and tendon(s) of the rotator cuff of left shoulder, initial encounter (principal); I10 Essential (primary) hypertension; F10.21 Alcohol dependence, in remission; M25.512 Pain in left shoulder; M47.813 Spondylosis without myelopathy or radiculopathy, cervicothoracic region; M54.40 Lumbago with sciatica, unspecified side; M25.412 Effusion, left shoulder; E78.5 Hyperlipidemia, unspecified; F17.210 Nicotine dependence, cigarettes, uncomplicated; F32.9 Major depressive disorder, single episode, unspecified; K21.9 Gastro-esophageal reflux disease without esophagitis; W17.89XA Other fall from one level to another, initial encounter; Y92.812 Truck as the place of occurrence of the external cause; Y93.01 Activity, walking, marching and hiking; Y99.9 Unspecified external cause status; Z79.899 Other long term (current) drug therapy; Z90.49 Acquired absence of other specified parts of digestive tract